=== PATIENT | female | born 1980 | race American Indian/Alaskan Native ===

== ENCOUNTER 2018-09-25 16:13 | Inpatient (IN) | payer MEDICAID ==
[2018-09-25 16:30] VITALS: BMI 34.0
--- NOTE | 2018-09-25 16:48 | C.PDOC ---
Addendum entered and electronically signed by Eduardo Moe MD 09/25/18 19:55: Disposition/Present on Arrival - Present on Arrival Any Indicators Present on Arrival: No - Disposition Have Diagnosis and Disposition been Completed?: Yes Diagnosis: Schizoaffective disorder, Depressed Disposition: HOSPITALIZED Disposition Time: 19:15 Patient Plan: Admission Patient Problems: Current Active Problems Problem Status Onset Schizophrenia Acute Suicidal ideations Acute Condition: STABLE Original Note: History Of Present Illness 38 y/o female, with PMHx of bipolar disorder, schizophrenia, and depression, presents to ED for evaluation of suicidal ideation. Notes she has tried to kill herself in the past by cutting her wrist and "choking herself", and states she has the same plan this time as well. Pt admits to using cocaine. Notes she has not taken her psych meds for the past month. Pt states she has been admitted multiple times in the past at different institutions for similar complaints. Otherwise, denies chest pain, palpitations, shortness of breath, n/v/d, abdominal pain, back pain, fever, chills, or any active physical complaints at this time. Time Seen by Provider: 09/25/18 16:17 Chief Complaint (Nursing): Psychiatric Evaluation History Per: Patient History/Exam Limitations: no limitations Onset/Duration Of Symptoms: Gradual Current Symptoms Are (Timing): Still Present Suicide/Self Injury Attempted (Context): Cut Wrists Modifying Factor(s): Cocaine Severity: None Pain Scale Rating Of: 0 Associated Symptoms: Suicidal Thoughts, Suicidal Plan Involuntary Hold By: None Recent travel outside of the [place]: No Additional History Per: Patient Past Medical History Reviewed: Historical Data, Nursing Documentation, Vital Signs - Medical History PMH: Bipolar Disorder, Schizophrenia Family History: States: Unknown Family Hx - Social History Hx Alcohol Use: No Hx Substance Use: Yes Review Of Systems Except As Marked, All Systems Reviewed And Found Negative. Constitutional: Negative for: Fever, Chills Cardiovascular: Negative for: Chest Pain, Palpitations Respiratory: Negative for: Cough, Shortness of Breath Gastrointestinal: Negative for: Nausea, Vomiting, Abdominal Pain Genitourinary: Negative for: Dysuria, Hematuria Musculoskeletal: Negative for: Back Pain Neurological: Negative for: Headache, Dizziness Psych: Positive for: Suicidal ideation Physical Exam - Physical Exam Appears: Non-toxic, No Acute Distress, Other (cooperative, smiling) Skin: Normal Color, Warm, Dry Head: Atraumatic, Normacephalic Eye(s): bilateral: Normal Inspection Oral Mucosa: Moist Neck: Normal ROM, Supple Cardiovascular: Rhythm Regular, No Murmur Respiratory: Normal Breath Sounds, No Rales, No Rhonchi, No Wheezing Gastrointestinal/Abdominal: Soft, No Tenderness Extremity: Bilateral: Atraumatic, Normal ROM Neurological/Psych: Oriented x3, Normal Speech ED Course And Treatment - Laboratory Results Result Diagrams: 09/25/18 17:23 09/25/18 17:23 Medical Decision Making Medical Decision Making: Plan: * Blood work * Urinalysis * 1:1 observation * Crisis evaluation Disposition - Disposition Disposition Time: 18:48 Condition: STABLE Forms: [employer] (Latvian) - Clinical Impression Clinical Impression: Schizophrenia, Suicidal ideations - Scribe Statement The provider has reviewed the documentation as recorded by the Scribe KP All medical record entries made by the Scribe were at my direction and personally dictated by me. I have reviewed the chart and agree that the record accurately reflects my personal performance of the history, physical exam, medic al decision making, and the department course for this patient. I have also personally directed, reviewed, and agree with the discharge instructions and disposition. Physician Patient Turnover Patient Signed Over To: Eduardo Moe Handoff Comments: Patient c/o feeling suicidal, pending crisis eval. Medically cleared.
[2018-09-25 17:32] LABS: BASO # 0.1 K/uL (0.0-0.2); BASO % 0.7 % (0.0-2.0); EOS # 0.1 K/uL (0.0-0.7); EOS % 1.7 % (0.0-4.0); HEMOGLOBIN 13.1 g/dL (11.0-16.0); LYMPH # 2.7 K/uL (1.0-4.3); LYMPH % 36.5 % (20.0-40.0); MEAN CELL VOLUME 92.3 fL (81.0-99.0); MEAN CORPUSCULAR HEMOGLOBIN 31.4 pg (27.0-31.0); MEAN PLATELET VOLUME 7.3 fL (7.2-11.7); MONO # 0.6 K/uL (0.0-0.8); MONO % 7.9 % (0.0-10.0); NEUT # 3.9 K/uL (1.8-7.0); NEUT % 53.2 % (50.0-75.0); RBC 4.16 Mil/uL (3.80-5.20); RED CELL DISTRIBUTION WIDTH 14.2 % (11.5-14.5); WHITE BLOOD COUNT 7.4 K/uL (4.8-10.8)
[2018-09-25 17:41] LABS: SQUAMOUS EPITHIAL 11 /hpf (0-5); URINE BACTERIA FEW (<OCC); URINE BILIRUBIN NEGATIVE (NEGATIVE); URINE BLOOD 2+ (NEGATIVE); URINE CLARITY Hazy (Clear); URINE COLOR Yellow (YELLOW); URINE GLUCOSE (UA) NORMAL (Normal); URINE LEUKOCYTE ESTERASE TRACE Leu/uL (Negative); URINE PROTEIN NEGATIVE (NEGATIVE)
[2018-09-25 17:51] LABS: ALB/GLOB RATIO 1.3 (1.0-2.1); ALBUMIN 4.3 g/dL (3.5-5.0); ALT/SGPT 18 U/L (9-52); AST/SGOT 30 U/L (14-36); BARBITURATES, UR NEGATIVE (NEGATIVE); BENZODIAZEPINES, UR NEGATIVE (NEGATIVE); BLOOD UREA NITROGEN 17 mg/dL (7-17); CALCIUM 9.4 mg/dl (8.6-10.4); GFR NON-AFRICAN AMERICAN > 60; OPIATES, UR NEGATIVE (NEGATIVE); PHENCYCLIDINE, UR NEGATIVE (NEGATIVE)
[2018-09-25] MEDS ORDERED: guaiFENesin 200 mg/10 ml Syrup UD PO PRN (20:07)
[2018-09-25] MEDS ORDERED: Benzocaine/Menthol (Cepacol) Lozenge MT PRN (20:07)
[2018-09-25] MEDS ORDERED: guaiFENesin DM 200 mg-20 mg/10 ml UD PO PRN (21:14)
--- NOTE | 2018-09-26 14:05 | PCM.PSYCH ---
Initial Psychiatric Evaluation - Initial Psychiatric Evaluation Type of Admission: Voluntary Legal Status: Capacity Chief Complaint (in patient's own words): "I was hearing voices" History of Present Illness and Precipitating Events: The patient is seen, chart reviewed and case discussed. This is a 38-year-old -Hung[place] male, single with no child, unemployed but on SSI for bipolar disorder. The patient lives with his mother in [place]. He reports depressive symptoms and suicidal ideation. He did not attempt anything but he said he was very depressed and felt like killing himself. He was also hearing voices telling him to "scratch yourself" He denies homicidal ideation, visual hallucinations but feels a little paranoid and irritable. He was seeing a Dr. Jones (?), and was taking Depakote but he stopped. He also uses cocaine by smoking since his 20s and 8 cigarettes a day. He denies alcohol and other drugs. He was in rehabilitation twice. Past psych history: Hospitalized 3 times in the past but no attempts. Medical history: Denies Family psych history: Denies Current Medications: Active Medications Generic Name Dose Route Start Last Admin Trade Name Freq PRN Reason Stop Dose Admin Aripiprazole 5 mg 09/26/18 22:00 Abilify PO HS ADAM Benzocaine/Menthol 1 hilary 09/25/18 20:07 Cepacol Sore Throat MT Q4 PRN Sore Throat Divalproex Sodium 500 mg 09/26/18 18:[address] PO BID ADAM Guaifenesin/Dextromethorphan 10 ml 09/25/18 21:14 09/25/18 21:26 Robitussin Dm PO 10 ml Q4H PRN Administration Cough and congestion Hydroxyzine HCl 50 mg 09/25/18 22:17 Atarax PO Q6H PRN Anxiety Ibuprofen 600 mg 09/25/18 20:07 09/25/18 21:26 Motrin Tab PO 600 mg Q6 PRN Administration Pain, moderate (4-7) Mirtazapine 15 mg 09/26/18 22:00 Remeron PO HS ADAM Pneumococcal Polyvalent Vaccine 0.5 ml 09/27/18 10:00 Pneumovax 23 Vaccine IM 09/27/18 10:01 .ONCE ONE Trazodone HCl 100 mg 09/26/18 12:02 Desyrel PO HS PRN Insomnia Past Psychiatric History - Past Psychiatric History Previous Treatment History: Inpatient Pertinent Medical Hx (Current Medical&Sleep Prob, Allergies): Allergies Allergy/AdvReac Type Severity Reaction Status Date / Time No Known Allergies Allergy Verified 09/25/18 16:28 Divalproex [Depakote ER] 500 mg PO DAILY 09/25/18 Review of Systems - Psychiatric Psychiatric: Abnormal Sleep Pattern, Anhedonia, Anxiety, Depression, Difficulty Concentrating, Hallucinations, Irritability, Suicidal Ideation (less now, contracts for safety). absent: Homicidal Ideation Mental Status Examination - Personal Presentation Personal Presentation: Looks stated age - Affect Affect: Blunted - Reliability in Providing Information Reliability in Providing Information: Good - Speech Speech: Organized - Mood Mood: Depressed, Anxious - Formal Thought Process Formal Thought Process: No Impairment - Cognitive Functions Orientation: Person, Place, Situation, Time Sensorium: Alert Attention/Concentration: Easily distracted Abstract Thinking: Hendricks Estimate of Intelligence: Below average Judgement: Intact, as evidence by: Insight regarding need for hospitalization Memory: Recent intact, as evidence by: Ability to recall events of the day, Remote intact, as evidenced by: Abilit to recall sig. life events - Risk Risk: Withdrawal, Diminished functioning - Strength & Assets Inventory Strength & Assets Inventory: Cooperative - Limitations Limitations: Living alone DSM 5 DX - DSM 5 DSM 5 Diagnosis: Schizoaffective d/o - depressed Cocaine use d/o - Recommended/Plan of Treatment Treatment Recommendations and Plan of Treatment: Start Abilify, depakote and remron Prn medications All risks, benefits and alternatives of medications, including no medications, discussed and the patient understood and agreed. Attend groups and activities Individual therapy Psychoeducation and support Encourage compliance with meds and after care Refer to outpatient program Teach healthy lifestyle methods, i.e. diet, exercise, meditation Smoking cessation 32 min Projected ELOS: 5 days Prognosis: good w treatment - Smoking Cessation Smoking Cessation Initiated: Yes
[2018-09-26] MEDS: Divalproex 500 mg DR Tab PO SCH (18:01)
[2018-09-27 07:03] VITALS: RESP 20
[2018-09-27] MEDS ORDERED: Pneumococcal 23-Valent Vaccine IM ONE (10:00)
[2018-09-27] MEDS: Divalproex 500 mg DR Tab PO SCH ×2 (10:06→18:58)
--- NOTE | 2018-09-27 20:51 | PCM.PYCHPN ---
Psychiatric Progress Note - Psychiatric Progress Note Patient seen today, length of contact: 18 min Patient Chief Complaint: "I am not well yet' Medication Change: Yes Medical Record Reviewed: Yes Mental Status Examination - Cognitive Function Orientation: Person, Place, Situation, Time Memory: Impaired Attention: Poor Concentration: Poor Association: Loose Fund of Knowledge: Poor - Mood Mood: Depressed, Anxious - Affect Affect: Blunted - Speech Speech: Appropriate - Formal Thought Process Formal Thought Process: No Impairment - Suicidal Ideation Suicidal Ideation: No - Homicidal Ideation Homicidal Ideation: No Goal/Treatment Plan - Goal/Treatment Plan Need for Continued Stay: Discharge may exacerbated symptoms, Severe functional impairment Progress Toward Problem(s) and Goals/Treatment Plan: Abilify, depakote and remron Prn medications All risks, benefits and alternatives of medications, including no medications, discussed and the patient understood and agreed. Attend groups and activities Individual therapy Psychoeducation and support Encourage compliance with meds and after care Refer to outpatient program Teach healthy lifestyle methods, i.e. diet, exercise, meditation Smoking cessation
[2018-09-28] MEDS: Divalproex 500 mg DR Tab PO SCH ×2 (09:44→17:19)
--- NOTE | 2018-09-28 10:22 | PCM.PYCHPN ---
Psychiatric Progress Note - Psychiatric Progress Note Patient seen today, length of contact: 15 min Patient Chief Complaint: I am feeling little better Problems Identified/Issues Discussed: Patient seen and evaluated, chart reviewed and discussed with the nurse. She reports some improvement in her irritability and agitation. She reports some improvement in her depressed mood and anxiety. She reports some improvement in the auditory hallucinations and paranoia. Patient is compliant with medications and denies any side effects. Symptoms are improving but need more time to stabilize. Support and psychoeducation given. Medication Change: Yes Medical Record Reviewed: Yes Mental Status Examination - Cognitive Function Orientation: Person, Place, Situation, Time Memory: Intact Attention: WNL Concentration: Poor Association: WNL Fund of Knowledge: Poor - Mood Mood: Depressed, Anxious - Affect Affect: Constricted - Speech Speech: Soft - Formal Thought Process Formal Thought Process: Paranoia - Suicidal Ideation Suicidal Ideation: No - Homicidal Ideation Homicidal Ideation: No Goal/Treatment Plan - Goal/Treatment Plan Need for Continued Stay: Severe depression anxiety, Severe functional impairment Progress Toward Problem(s) and Goals/Treatment Plan: Start Abilify, depakote and remron Prn medications All risks, benefits and alternatives of medications, including no medications, discussed and the patient understood and agreed. Attend groups and activities Individual therapy Psychoeducation and support Encourage compliance with meds and after care Refer to outpatient program Teach healthy lifestyle methods, i.e. diet, exercise, meditation Smoking cessation
--- NOTE | 2018-09-28 16:29 | PCM.BM ---
<Tru White - Last Filed: 09/28/18 16:26> Treatment Plan Problems - Problems identified on initial assessmt Schizoaffective Date Initiated: 09/28/18 Time Initiated: 16:26 Assessment reference: NA Status: Active Depression Date Initiated: 09/28/18 Time Initiated: 16:27 Assessment reference: NA Status: Active Treatment assets and liabiliti Patient Assests: self-reliant, ADL independent, physically healthy, negotiates basic needs, cognitively intact Patient Liabilities: live alone (Homeless), financial problems (Unemployed), substance abuse (Cocaine) - Milieu Protocol Maintain good personal hygiene: daily Encourage regular showers, daily Remind patient to perform daily oral care, every shift Assist patient to perform ADL's Conduct patient checks and document Observation sheet: Q15 minutes (For safety) Maintain personal safety: every shift Educate patient to report safety concerns to staff, every shift Monitor environment for contraband/sharps Medication safety: Monitor for expected outcome, potential side effects: every shift, Assess barriers to learning: every shift, Assess readiness for medication education: every shift Milieu Narrative: Start Abilify, depakote and remron Prn medications All risks, benefits and alternatives of medications, including no medications, discussed and the patient understood and agreed. Attend groups and activities Individual therapy Psychoeducation and support Encourage compliance with meds and after care Refer to outpatient program Teach healthy lifestyle methods, i.e. diet, exercise, meditation Smoking cessation Discharge/Continuing Care - Treatment Team Participation Patient/Family/SO Statement: Start Abilify, depakote and remron Prn medications All risks, benefits and alternatives of medications, including no medications, discussed and the patient understood and agreed. Attend groups and activities Individual therapy Psychoeducation and support Encourage compliance with meds and after care Refer to outpatient program Teach healthy lifestyle methods, i.e. diet, exercise, meditation Smoking cessation <Drea Zelaya - Last Filed: 09/29/18 10:43> Family Contact Family involvement: Patient does not wish Family/SO involvement Family contact: Patient declines to allow family contact at present - Goals for Treatment Patient goals for treatment: "I want to go to an outpatient program." Discharge/Continuing Care - Education Needs Education Needs: Patient Medication, Patient Diagnosis/Disease Process, Patient Coping Skills, Patient Placement options, Patient Community resources - Discharge Discharge Criteria: Free of Suicidal thoughts, Free of paranoid thoughts, Normal sleep pattern, Ability to care for self, Reduction of target symptoms Discharge to:: Home - Treatment Team Participation Discussed with Family/SO: No Was Patient/Family/SO present at Treatment Team Meeting: Yes <Eileen Cruz - Last Filed: 09/30/18 10:32> - Diagnosis (1) Schizoaffective disorder Status: Acute Interventions: * Assess/adjust medications daily and /or as needed * See patient on an individual basis 7x/week to assess level of manic behaviors and stability * Discuss risks, benefits, side effects and alternatives of medications *
[2018-09-29] MEDS: Divalproex 500 mg DR Tab PO SCH ×2 (09:48→18:29)
[2018-09-30 06:48] VITALS: BP 126/84; PULSE 81; TEMP 98.6; O2SAT 98
[2018-09-30] MEDS: Divalproex 500 mg DR Tab PO SCH (10:17)
--- NOTE | 2018-09-30 10:26 | PCM.PYCHPN ---
Psychiatric Progress Note - Psychiatric Progress Note Patient seen today, length of contact: 18 min Patient Chief Complaint: I am feeling little better.' Problems Identified/Issues Discussed: Patient seen and evaluated, chart reviewed and discussed with the nurse. She reports some improvement in her irritability and agitation. She reports some improvement in her depressed mood and anxiety. She reports some improvement in the withdrawal symptoms. She reports some improvement in the auditory hallucinations and paranoia. Patient is compliant with medications and denies any side effects. Symptoms are improving but need more time to stabilize. Support and psychoeducation given. Medication Change: Yes Medical Record Reviewed: Yes Mental Status Examination - Cognitive Function Orientation: Person, Place, Situation, Time Memory: Impaired Attention: Poor Concentration: Poor Association: Loose Fund of Knowledge: Poor - Mood Mood: Depressed, Anxious - Affect Affect: Blunted - Speech Speech: Appropriate - Formal Thought Process Formal Thought Process: No Impairment - Suicidal Ideation Suicidal Ideation: No - Homicidal Ideation Homicidal Ideation: No Goal/Treatment Plan - Goal/Treatment Plan Need for Continued Stay: Discharge may exacerbated symptoms, Severe functional impairment Progress Toward Problem(s) and Goals/Treatment Plan: Start Abilify, depakote and remron Prn medications All risks, benefits and alternatives of medications, including no medications, discussed and the patient understood and agreed. Attend groups and activities Individual therapy Psychoeducation and support Encourage compliance with meds and after care Refer to outpatient program Teach healthy lifestyle methods, i.e. diet, exercise, meditation Smoking cessation
--- NOTE | 2018-09-30 10:30 | PCM.PYCHDC ---
Mental Status Examination - Mental Status Examination Orientation: Person, Place, Situation, Time Memory: Intact Mood: Neutral Affect: Constricted Speech: Soft Attention: WNL Concentration: WNL Association: WNL Fund of Knowledge: WNL Formal Thought Process: No Impairment Description of patient's judgement and insight: good, fair Psychotic Thoughts and Behaviors: denies any AVH Suicidal Ideation: No Current Homicidal Ideation?: No Discharge Summary - Discharge Note Reason for Hospitalization: The patient is seen, chart reviewed and case discussed. This is a 38-year-old -[place] male, single with no child, unemployed but on SSI for bipolar disorder. The patient lives with his mother in [place]. He reports depressive symptoms and suicidal ideation. He did not attempt anything but he said he was very depressed and felt like killing himself. He was also hearing voices telling him to "scratch yourself" He denies homicidal ideation, visual hallucinations but feels a little paranoid and irritable. He was seeing a Dr. Jones (?), and was taking Depakote but he stopped. He also uses cocaine by smoking since his 20s and 8 cigarettes a day. He denies alcohol and other drugs. He was in rehabilitation twice. Past psych history: Hospitalized 3 times in the past but no attempts. Medical history: Denies Consultations:: List each consultation separately and include: 1. Reason for request. 2. Findings. 3. Follow-up Summary of Hospital Course include:: 1. Description of specific treatment plan utilized for patients during their course of treatmen. 2. Summarize the time- course for resolution of acute symptoms and/or regressed behaviors. 3. Describe issues identified and worked on during hospitalization. 4. Describe medication utilized. 5. Describe medical problems identified and treated. 6. Reassessment of suicide risk Summary of Hospital Course: During the course of her stay, patient (pt) started progressively improving and no longer remained irritable, paranoid, delusional, depressed, and suicidal. Her mood and anxiety were improved and she started attending groups and meetings and started socializing. Patient denied any feelings of hopelessness, helplessness, and worthlessness, denied any problem with the sleep or appetite, denied suicidal ideation or homicidal ideation. Pt denied any auditory or visual hallucinations. She denied any withdrawal symptoms. Pt was treated with medications along with supportive therapy, milieu therapy and group therapy. Some changes were made in her current medications and patient was discharged on following medications. She tolerated these medications very well and denied any side effects. - Final Diagnosis (DSM 5) Condition upon Discharge: STABLE DSM 5: Schizoaffective d/o - depressed Cocaine use d/o Disposition: HOME/ ROUTINE Follow-up Treatment Plan: Followup: She was discharged to the [facility]. Education: Pt was educated and counseled about the risks and benefits of taking and not taking medications. Pt was educated and counseled about the risks of drinking and abusing drugs. Pt was educated and counseled to go to the ER or call 911 if pt develop suicidal ideation or homicidal ideation, worsening of symptoms or severe side effects of the meds. Prescriptions/Medication Reconciliation: ARIPiprazole [Abilify] 5 mg PO HS #30 tab Divalproex [Depakote DR] 500 mg PO BID #60 tcp Mirtazapine [Remeron] 15 mg PO HS #30 tab traZODone [Desyrel] 100 mg PO HS PRN #30 tab PRN Reason: Insomnia - Smoking Cessation Smoking Cessation Medication prescribed: No - Antipsychotic Medications Pt discharged on 2 or more routine antipsychotic medications: No
== END 2018-09-30 11:32 | disposition home or self-care (01) | DRG 750 ==
LOC: C.ER 16:13 → C.5E 19:15
PROVIDERS: ADMIT Psychiatry & Neurology Psychiatry; ATTEND Psychiatry & Neurology Psychiatry
PROC: GZHZZZZ Group Psychotherapy (ICD-10-PCS; principal; 2018-09-25)
PROC: GZ58ZZZ Individual Psychotherapy, Cognitive-Behavioral (ICD-10-PCS; 2018-09-25)
PROC: GZ56ZZZ Individual Psychotherapy, Supportive (ICD-10-PCS; 2018-09-25)
DX: F25.1 Schizoaffective disorder, depressive type (principal); R45.851 Suicidal ideations; F14.90 Cocaine use, unspecified, uncomplicated; F31.9 Bipolar disorder, unspecified; Z91.5 Personal history of self-harm; F17.210 Nicotine dependence, cigarettes, uncomplicated

== ENCOUNTER 2018-10-09 10:22 | Inpatient (IN) | payer MEDICAID ==
[2018-10-09 10:22] VITALS: BMI 34.0
--- NOTE | 2018-10-09 11:24 | C.PDOC ---
History Of Present Illness 38-year-old female, PMHx includes schizophrenia, is brought to the emergency department; mother reportedly called because pt made homicidal threats towards her. Patient is currently menstruating. Denies fever, chills, chest pain, ab dominal pain, SI, AH or any other associated symptoms. Patient denies HI at this time. pt non compliant recently with medications. Time Seen by Provider: 10/09/18 10:51 Chief Complaint (Nursing): Psychiatric Evaluation History Per: Patient History/Exam Limitations: no limitations Past Medical History Reviewed: Historical Data, Nursing Documentation, Vital Signs Vital Signs: Last Vital Signs Temp 98.3 F 10/09/18 10:33 Pulse 79 10/09/18 10:33 Resp 20 10/09/18 10:33 BP 104/68 10/09/18 10:33 Pulse Ox 100 10/09/18 10:33 - Medical History PMH: Bipolar Disorder, Schizophrenia - [facility] Procedures GROUP PSYCHOTHERAPY (09/25/18) INDIVIDUAL PSYCHOTHERAPY, COGNITIVE-BEHAVIORAL (09/25/18) INDIVIDUAL PSYCHOTHERAPY, SUPPORTIVE (09/25/18) Family History: States: No Known Family Hx - Social History Hx Alcohol Use: No Hx Substance Use: Yes - Immunization History Hx Tetanus Toxoid Vaccination: Yes Hx Influenza Vaccination: No Hx Pneumococcal Vaccination: No Review Of Systems Constitutional: Negative for: Fever Gastrointestinal: Negative for: Nausea, Vomiting Neurological: Negative for: Weakness, Numbness Psych: Positive for: Other (HI - none at this time). Negative for: Suicidal ideation Physical Exam - Physical Exam Appears: Non-toxic, No Acute Distress Skin: Warm, Dry, No Rash Head: Atraumatic, Normacephalic Eye(s): bilateral: Normal Inspection Nose: Normal Oral Mucosa: Moist Lips: Normal Appearing Neck: Normal ROM Cardiovascular: Rhythm Regular, No Murmur Respiratory: Normal Breath Sounds, No Accessory Muscle Use Gastrointestinal/Abdominal: Bowel Sounds, Soft, No Tenderness Neurological/Psych: Oriented x3, Normal Speech ED Course And Treatment - Laboratory Results Result Diagrams: 10/09/18 12:03 10/09/18 12:03 O2 Sat by Pulse Oximetry: 100 Pulse Ox Interpretation: Normal (RA) Medical Decision Making Medical Decision Making: Patient pending psych clearance. Requesting 1:1 observation 1256 pt is medically cleared for psychiatric eval. accepted by Dr Cruz for psych admission Disposition Discussed With DrBridgette: Eileen Cruz Doctor Will See Patient In The: Hospital - Disposition Disposition: HOSPITALIZED Disposition Time: 13:14 Condition: STABLE - Clinical Impression Clinical Impression: Schizoaffective disorder, bipolar type - Scribe Statement The provider has reviewed the documentation as recorded by the Scribe (Trish Alcala) All medical record entries made by the Scribe were at my direction and personally dictated by me. I have reviewed the chart and agree that the record accurately reflects my personal performance of the history, physical exam, medical decision making, and the department course for this patient. I have also personally directed, reviewed, and agree with the discharge instructions and disposition.
[2018-10-09 12:07] LABS: BASO # 0.1 K/uL (0.0-0.2); BASO % 1.4 % (0.0-2.0); EOS # 0.1 K/uL (0.0-0.7); EOS % 1.7 % (0.0-4.0); HEMOGLOBIN 12.8 g/dL (11.0-16.0); LYMPH # 2.4 K/uL (1.0-4.3); LYMPH % 40.9 % (20.0-40.0); MEAN CORPUSCULAR HEMOGLOBIN 32.2 pg (27.0-31.0); MEAN CORPUSCULAR HGB CONC 34.6 g/dL (33.0-37.0); MEAN PLATELET VOLUME 8.1 fL (7.2-11.7); MONO # 0.6 K/uL (0.0-0.8); MONO % 9.8 % (0.0-10.0); NEUT # 2.7 K/uL (1.8-7.0); NEUT % 46.2 % (50.0-75.0); NRBC % 0.2 % (0.0-2.0); RBC 3.99 Mil/uL (3.80-5.20); RED CELL DISTRIBUTION WIDTH 13.8 % (11.5-14.5); WHITE BLOOD COUNT 5.8 K/uL (4.8-10.8)
[2018-10-09 12:12] LABS: HCG,QUALITATIVE URINE NEGATIVE (NEGATIVE)
[2018-10-09 12:19] LABS: SQUAMOUS EPITHIAL 1 /hpf (0-5); URINE BACTERIA RARE (<OCC); URINE BILIRUBIN NEGATIVE (NEGATIVE); URINE BLOOD 3+ (NEGATIVE); URINE CLARITY Clear (Clear); URINE COLOR Yellow (YELLOW); URINE GLUCOSE (UA) NORMAL (Normal); URINE LEUKOCYTE ESTERASE NEG Leu/uL (Negative); URINE PROTEIN NEGATIVE (NEGATIVE)
[2018-10-09 12:21] LABS: ALB/GLOB RATIO 1.3 (1.0-2.1); ALT/SGPT 23 U/L (9-52); AST/SGOT 23 U/L (14-36); BLOOD UREA NITROGEN 17 mg/dL (7-17); CALCIUM 8.6 mg/dl (8.6-10.4); GFR NON-AFRICAN AMERICAN > 60
[2018-10-09 12:46] LABS: BARBITURATES, UR NEGATIVE (NEGATIVE); BENZODIAZEPINES, UR NEGATIVE (NEGATIVE); OPIATES, UR NEGATIVE (NEGATIVE); PHENCYCLIDINE, UR NEGATIVE (NEGATIVE)
--- NOTE | 2018-10-09 15:05 | PCM.BM ---
<Viviana Ellis - Last Filed: 10/09/18 15:03> Treatment Plan Problems - Problems identified on initial assessmt Depression Date Initiated: 10/09/18 Time Initiated: 15:04 Assessment reference: NA Status: Active Substance Abuse Date Initiated: 10/09/18 Time Initiated: 15:04 Assessment reference: NA Status: Active Treatment assets and liabiliti Patient Assests: cooperative, self-reliant, ADL independent, physically healthy, negotiates basic needs, cognitively intact Patient Liabilities: financial problems, substance abuse (Cocaine) - Milieu Protocol Maintain good personal hygiene: daily Encourage regular showers, daily Remind patient to perform daily oral care, daily Assist patient to perform ADL's (Self), other Assist patient to perform ADL's Conduct patient checks and document Observation sheet: Q15 minutes (Safety) Maintain personal safety: every shift Educate patient to report safety concerns to staff, every shift Monitor environment for contraband/sharps Medication safety: Monitor for expected outcome, potential side effects: every shift, Assess barriers to learning: every shift, Assess readiness for medication education: every shift <Eileen Cruz - Last Filed: 10/12/18 11:15> - Diagnosis (1) Schizoaffective disorder, bipolar type Status: Acute Interventions: 10/12/18 11:16 * Assess/adjust medications daily and /or as needed * See patient on an individual basis 7x/week to assess status of hallucinations * Discuss risks, benefits, side effects and alternatives of medications * <Drea Zelaya - Last Filed: 10/12/18 12:19> Family Contact Family involvement: Patient does not wish Family/SO involvement Family contact: Patient declines to allow family contact at present - Goals for Treatment Patient goals for treatment: "I want to go to [facility]." Discharge/Continuing Care - Education Needs Education Needs: Patient Medication, Patient Diagnosis/Disease Process, Patient Coping Skills, Patient Placement options, Patient Community resources - Discharge Discharge Criteria: Free of Suicidal thoughts, Free of Homicidal thoughts, Normal sleep pattern, Ability to care for self, No longer exhibiting s/s of withdrawal, Reduction of target symptoms Discharge to:: [facility] - Treatment Team Participation Discussed with Family/SO: No Was Patient/Family/SO present at Treatment Team Meeting: Yes
[2018-10-10] MEDS: Divalproex 500 mg DR Tab PO SCH (17:14)
[2018-10-11 07:19] VITALS: O2SAT 96
[2018-10-11] MEDS ORDERED: Influenza Vaccine 60 MCG/0.5 ML SYR (3 yr & up) IM ONE (10:00)
[2018-10-11] MEDS ORDERED: Pneumococcal 23-Valent Vaccine IM ONE (10:00)
[2018-10-11] MEDS: Divalproex 500 mg DR Tab PO SCH ×2 (10:00→17:41)
[2018-10-12] MEDS: Divalproex 500 mg DR Tab PO SCH ×2 (09:40→17:07)
--- NOTE | 2018-10-12 11:15 | PCM.PYCHPN ---
Psychiatric Progress Note - Psychiatric Progress Note Patient seen today, length of contact: 15 min Patient Chief Complaint: I was feeling depressed.' Problems Identified/Issues Discussed: Patient seen and evaluated, chart reviewed and discussed with the nurse. Pt reports depressed mood, and reports some improvement in the feelings of hopelessness and helplessness. Pt remained disorganized and internally preoccupied. She remained isolated and withdrawn, and confined to her room. She reports some improvement in the auditory hallucinations, and paranoia. Patient is compliant with medications and denies any side effects. Symptoms are improving but pt needs more time to stabilize. Support and psychoeducation given Medication Change: Yes Medical Record Reviewed: Yes Mental Status Examination - Cognitive Function Orientation: Person, Place, Situation, Time Memory: Intact Attention: WNL Concentration: Poor Association: Loose Fund of Knowledge: WNL - Mood Mood: Depressed, Anxious - Affect Affect: Constricted - Speech Speech: Soft - Formal Thought Process Formal Thought Process: Hallucinations, Delusions, Paranoia, Loosening of associations - Suicidal Ideation Suicidal Ideation: No - Homicidal Ideation Homicidal Ideation: No Goal/Treatment Plan - Goal/Treatment Plan Need for Continued Stay: Severe depression anxiety, Severe functional impairment Progress Toward Problem(s) and Goals/Treatment Plan: Schizoaffective disorder bipolar type CBT Psychoeducation Supportive therapy, group therapy, individual therapy Haldol 5 mg by mouth q6 prn Trazodone 100 mg by mouth daily at bedtime Hydroxyzine 25 mg by mouth every 6 hours when necessary Depakote 500 mg by mouth twice a day Aripiprazole 10 mg by mouth daily at bedtime Cocaine use disorder severe Monitor signs and symptoms Use [place] for abstinence - Smoking Cessation Smoking Cessation Initiated: No
--- NOTE | 2018-10-13 07:06 | PCM.PSYCH ---
Initial Psychiatric Evaluation - Initial Psychiatric Evaluation Legal Status: Capacity Chief Complaint (in patient's own words): my medicine made me too weak and i stopped it Patient's Reaction to Hospitalization: i want to stop the risperdal and get a new medicine History of Present Illness and Precipitating Events: pt is a 38n year old female who lives with her mother mother called 911 because she was afraid of herc daughter because PT WAS HAVING HOMICIDAL IDEATION YOWARDS HER MOTHER. PT HAD STOPPED TAKING HER MEDICATIONS.FOR SEVERAL DAYS THEB PT ADMITS. PTB HAS HAD MULTIPLE HOSPITALIZATIONS INCLUDING [facility] AND [facility]. PT STATES SHE WENT TO THESE HOSPITALS TO BETTER HERSELF. PT DENIES CURRENT SI/HI. PT DENIES DELUSIONS AND HALLUCINATIONS AT THIS TIME. HOWEVER HER MOTHER CAN IRRITATE HER. 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 DUE TO PSYCHIATIC ILLNESS PT HAS 3 BROTHER AND 1 SISTERSHE IS THIRD IN A SIBSHIP OF FIVE Current Medications: Active Medications Generic Name Dose Route Start Last Admin Trade Name Freq PRN Reason Stop Dose Admin Aripiprazole 10 mg 10/11/18 10:00 10/12/18 09:40 Abilify PO 10 mg DAILY ADAM Administration Divalproex Sodium 500 mg 10/10/18 18:00 10/12/18 17:[address] PO 500 mg BID ADAM Administration Past Psychiatric History - Past Psychiatric History Prior Professional Help: SEE HPI Pertinent Medical Hx (Current Medical&Sleep Prob, Allergies): Allergies Allergy/AdvReac Type Severity Reaction Status Date / Time No Known Allergies Allergy Verified 10/09/18 11:14 Divalproex [Depakote ER] 500 mg PO DAILY 09/25/18 ARIPiprazole [Abilify] 5 mg PO HS #30 tab 09/30/18 Mirtazapine [Remeron] 15 mg PO HS #30 tab 09/30/18 traZODone [Desyrel] 100 mg PO HS PRN #30 tab 09/30/18 Review of Systems - Review of Systems Systems not reviewed;Unavailable: Altered Mental Status - EENT Eyes: UNREMARKABLE Ears: UNREMARKABLE - Breasts Breasts: UNREMARKABLE - Cardiovascular Cardiovascular: UNREMARKABLE - Respiratory Respiratory: UNREMARKABLE - Gastrointestinal Gastrointestinal: UNREMARKABLE - Genitourinary Genitourinary: UNREMARKABLE - Reproductive: Female Reproductive:Female: Currently Menstual - Menstruation Menstruation: UNREMARKABLE - Musculoskeletal Musculoskeletal: UNREMARKABLE - Integumentary Integumentary: UNREMARKABLE - Neurological Neurological: UNREMARKABLE - Psychiatric Psychiatric: Homicidal Ideation - Endocrine Endocrine: UNREMARKABLE - Hematologic/Lymphatic Hematologic: UNREMARKABLE Mental Status Examination - Personal Presentation Personal Presentation: Looks stated age - Affect Affect: Blunted - Motor Activity Motor Activity: Calm - Reliability in Providing Information Reliability in Providing Information: Fair - Speech Speech: Coherent - Mood Mood: Neutral - Formal Thought Process Formal Thought Process: Delusions, Paranoia - Obsessions/Compulsions Obsessions: None Compulsions: None - Cognitive Functions Orientation: Person, Place, Situation, Time Sensorium: Alert, Lethargic Attention/Concentration: Easily distracted Abstract Thinking: Rindge Estimate of Intelligence: Average Judgement: Imparied, as evidence by: Lack of insight into illness Memory: Recent intact, as evidence by: Other, Remote intact, as evidenced by: Abilit to recall sig. life events - Risk Risk: Homicidal - Strength & Assets Inventory Strength & Assets Inventory: Employment history - Limitations Limitations: Other DSM 5 DX - DSM 5 DSM 5 Diagnosis: SCHIZOAFFECTIVE DISORDER COCAINE USE DISORDER - Recommended/Plan of Treatment Treatment Recommendations and Plan of Treatment: SCHIZOAFFECTIVE DISORDER BIPOLAR TYPE ABILIFY DEPAKOTE PSYCHOEDUCATION COCAINE USE DISORDER NV CBT GROUP MILIEU AND RECREATIONAL THERAPIES SUPPORTIVE PSYCHOTHERAPY Projected ELOS: 10 DAYS Prognosis: FAIR WITH TREATMENT Discharge Plan and Discharge Criteria: NO LONGER PARANOID AND NO HOMICIDAL IDEATION - Smoking Cessation Smoking Cessation Initiated: No
--- NOTE | 2018-10-13 07:27 | PCM.PYCHPN ---
Psychiatric Progress Note - Psychiatric Progress Note Patient seen today, length of contact: 15 min Patient Chief Complaint: I AM NOT TIRED ANY MORE WITH THE NEW MEDICINE Problems Identified/Issues Discussed: PT SEEN AND EXAMINED DISCUSSED WITH STAFF. DISCUSSED WITH PT SYMPTOM MANAGEMENT Medical Problems: NOTHING ACUTE Diagnostic Results: REVIEWED Medication Change: Yes Medical Record Reviewed: Yes Mental Status Examination - Cognitive Function Orientation: Person, Place, Situation, Time Memory: Impaired Attention: Poor Concentration: Poor Association: WNL Fund of Knowledge: Poor - Mood Mood: Neutral - Affect Affect: Blunted - Speech Speech: Appropriate - Formal Thought Process Formal Thought Process: Hallucinations, Delusions, Paranoia - Suicidal Ideation Suicidal Ideation: No - Homicidal Ideation Homicidal Ideation: No Goal/Treatment Plan - Goal/Treatment Plan Need for Continued Stay: Discharge may exacerbated symptoms, Severe functional impairment Progress Toward Problem(s) and Goals/Treatment Plan: SCHIZOAFFECTIVE DISORDER BIPOLAR TYPE ABILIFY DEPAKOTE PSYCHOEDUCATION COCAINE USE DISORDER IN CBT GROUP MILIEU AND RECREATIONAL THERAPIES SUPPORTIVE PSYCHOTHERAPY - Smoking Cessation Smoking Cessation Initiated: No
[2018-10-13] MEDS: Divalproex 500 mg DR Tab PO SCH ×2 (09:48→17:43)
--- NOTE | 2018-10-14 01:51 | PCM.PYCHPN ---
Psychiatric Progress Note - Psychiatric Progress Note Patient seen today, length of contact: 15 min Patient Chief Complaint: I am feeling better.' Problems Identified/Issues Discussed: Patient seen and evaluated, chart reviewed and discussed with the nurse. Pt reports some improvement in the depressed mood, and reports some improvement in the feelings of hopelessness and helplessness. She appears more organized and less internally preoccupied than before. She remained isolated and withdrawn, and confined to her room. She reports some improvement in the auditory hallucinations, and paranoia. Patient is compliant with medications and denies any side effects. Symptoms are improving but pt needs more time to stabilize. Support and psychoeducation given Medication Change: Yes Medical Record Reviewed: Yes Mental Status Examination - Cognitive Function Orientation: Person, Place, Situation, Time Memory: Intact Attention: WNL Concentration: Poor Association: Loose Fund of Knowledge: WNL - Mood Mood: Depressed, Anxious - Affect Affect: Constricted - Speech Speech: Soft - Formal Thought Process Formal Thought Process: Hallucinations, Delusions, Paranoia, Loosening of associations - Suicidal Ideation Suicidal Ideation: No - Homicidal Ideation Homicidal Ideation: No Goal/Treatment Plan - Goal/Treatment Plan Need for Continued Stay: Severe depression anxiety, Severe functional impairment Progress Toward Problem(s) and Goals/Treatment Plan: Schizoaffective disorder bipolar type CBT Psychoeducation Supportive therapy, group therapy, individual therapy Haldol 5 mg by mouth q6 prn Trazodone 100 mg by mouth daily at bedtime Hydroxyzine 25 mg by mouth every 6 hours when necessary Depakote 500 mg by mouth twice a day Aripiprazole 10 mg by mouth daily at bedtime Cocaine use disorder severe Monitor signs and symptoms Use [place] for abstinence
[2018-10-14] MEDS: Divalproex 500 mg DR Tab PO SCH ×2 (09:04→17:42)
--- NOTE | 2018-10-14 10:29 | PCM.PYCHPN ---
Psychiatric Progress Note - Psychiatric Progress Note Patient seen today, length of contact: 15 min Patient Chief Complaint: I was feeling depressed.' Problems Identified/Issues Discussed: Patient seen and evaluated, chart reviewed and discussed with the nurse. Pt reports some improvement in the depressed mood, auditory hallucinations and paranoia. She appears more organized and less internally preoccupied than before. Patient is compliant with medications and denies any side effects. Symptoms are improving but pt needs more time to stabilize. Support and psychoeducation given Medication Change: Yes Medical Record Reviewed: Yes Mental Status Examination - Cognitive Function Orientation: Person, Place, Situation, Time Memory: Intact Attention: WNL Concentration: WNL Association: Loose Fund of Knowledge: WNL - Mood Mood: Depressed, Anxious - Affect Affect: Constricted - Speech Speech: Soft - Formal Thought Process Formal Thought Process: Loosening of associations - Suicidal Ideation Suicidal Ideation: No - Homicidal Ideation Homicidal Ideation: No Goal/Treatment Plan - Goal/Treatment Plan Need for Continued Stay: Severe depression anxiety, Severe functional impairment Progress Toward Problem(s) and Goals/Treatment Plan: Schizoaffective disorder bipolar type CBT Psychoeducation Supportive therapy, group therapy, individual therapy Haldol 5 mg by mouth q6 prn Trazodone 100 mg by mouth daily at bedtime Hydroxyzine 25 mg by mouth every 6 hours when necessary Depakote 500 mg by mouth twice a day Aripiprazole 10 mg by mouth daily at bedtime Cocaine use disorder severe Monitor signs and symptoms Use [place] for abstinence
[2018-10-15 06:45] VITALS: BP 113/74; PULSE 69; RESP 18; TEMP 98.6
[2018-10-15] MEDS: Divalproex 500 mg DR Tab PO SCH (10:00)
--- NOTE | 2018-10-15 10:06 | PCM.PYCHDC ---
Mental Status Examination - Mental Status Examination Orientation: Person, Place, Situation, Time Memory: Intact Affect: Constricted Speech: Soft Attention: WNL Concentration: WNL Association: WNL Fund of Knowledge: WNL Formal Thought Process: No Impairment Description of patient's judgement and insight: good, fair Psychotic Thoughts and Behaviors: denies any AVH Suicidal Ideation: No Current Homicidal Ideation?: No Discharge Summary - Discharge Note Reason for Hospitalization: Pt is a 38n year old female who lives with her mother mother called 911 because she was afraid of herc daughter because pt was having homicidal ideation towards her mother. Pt had stopped taking her medications for several days the pt admits. Ptb has had multiple hospitalizations including [facility] and [facility]. Pt states she went to these hospitals to better herself. Pt denies current si/hi. Pt denies delusions and hallucinations at this time. However her mother can irritate her. Family psych hx none Family substance use denied denied Legal has been arrested and jailed for robbery Substance abuse hx has used cocaine in the past but uds is positive for cocaine pt started using cocaine age 28 Medical hx denied Social hx went up to 10th grade has worked in a [employer]elz story is on disability due to psychiatric illness pt has 3 brother and 1 sister she is third in a sibship of five Consultations:: List each consultation separately and include: 1. Reason for request. 2. Findings. 3. Follow-up Summary of Hospital Course include:: 1. Description of specific treatment plan utilized for patients during their course of treatmen. 2. Summarize the time- course for resolution of acute symptoms and/or regressed behaviors. 3. Describe issues identified and worked on during hospitalization. 4. Describe medication utilized. 5. Describe medical problems identified and treated. 6. Reassessment of suicide risk Summary of Hospital Course: During the course of her stay, patient (pt) started progressively improving and she no longer remained irritable, anxious and paranoid. Her mood and paranoia were improved and she started attending groups and meetings and started socializing. Patient denied any feelings of hopelessness, helplessness, and worthlessness, denied any problem with the sleep or appetite, denied suicidal ideation or homicidal ideation. Pt denied any auditory or visual hallucinations. Some changes were made in her current medications and patient was discharged on following medications. She tolerated these medications very well and denied any side effects. - Diagnosis (1) Schizoaffective disorder, bipolar type Current Visit: Yes Status: Acute - Final Diagnosis (DSM 5) Condition upon Discharge: STABLE DSM 5: Schizoaffective disorder bipolar type Cocaine use disorder severe Disposition: HOME/ ROUTINE Follow-up Treatment Plan: Follow-up: Patient was discharged to [facility] . Education: Pt was educated and counseled about the risks and benefits of taking and not taking medications. Pt was educated and counseled about the risks of drinking and abusing drugs. Pt was educated and counseled to go to the ER or call 911 if pt develop suicidal ideation or homicidal ideation, worsening of symptoms or severe side effects of the meds. Prescriptions/Medication Reconciliation: ARIPiprazole [Abilify] 10 mg PO DAILY #30 tab Divalproex [Depakote DR] 500 mg PO BID #60 tcp traZODone [Desyrel] 50 mg PO HS #30 tab - Smoking Cessation Smoking Cessation Medication prescribed: No - Antipsychotic Medications Pt discharged on 2 or more routine antipsychotic medications: No
== END 2018-10-15 11:00 | disposition home or self-care (01) | DRG 750 ==
LOC: C.ER 10:22 → C.5E 13:15
PROVIDERS: ADMIT Psychiatry & Neurology Psychiatry; ATTEND Psychiatry & Neurology Psychiatry
DX: F25.0 Schizoaffective disorder, bipolar type (principal); F14.20 Cocaine dependence, uncomplicated; R45.850 Homicidal ideations

== ENCOUNTER 2018-11-05 11:43 | Inpatient (IN) | payer MEDICAID ==
[2018-11-05 12:01] VITALS: O2SAT 98; BMI 32.7
[2018-11-05 12:34] LABS: BASO # 0.1 K/uL (0.0-0.2); BASO % 0.8 % (0.0-2.0); EOS # 0.1 K/uL (0.0-0.7); EOS % 1.4 % (0.0-4.0); HEMOGLOBIN 14.4 g/dL (11.0-16.0); LYMPH # 2.5 K/uL (1.0-4.3); LYMPH % 35.1 % (20.0-40.0); MEAN CELL VOLUME 94.6 fL (81.0-99.0); MEAN CORPUSCULAR HEMOGLOBIN 32.5 pg (27.0-31.0); MEAN CORPUSCULAR HGB CONC 34.4 g/dL (33.0-37.0); MEAN PLATELET VOLUME 7.1 fL (7.2-11.7); MONO # 0.6 K/uL (0.0-0.8); MONO % 7.8 % (0.0-10.0); NEUT # 3.9 K/uL (1.8-7.0); NEUT % 54.9 % (50.0-75.0); RBC 4.42 Mil/uL (3.80-5.20); WHITE BLOOD COUNT 7.2 K/uL (4.8-10.8)
[2018-11-05 12:38] LABS: HCG,QUALITATIVE URINE NEGATIVE (NEGATIVE); SQUAMOUS EPITHIAL 2 /hpf (0-5); URINE BACTERIA RARE (<OCC); URINE BILIRUBIN NEGATIVE (NEGATIVE); URINE BLOOD NEGATIVE (NEGATIVE); URINE CLARITY Clear (Clear); URINE COLOR Yellow (YELLOW); URINE GLUCOSE (UA) NORMAL (Normal); URINE LEUKOCYTE ESTERASE NEG Leu/uL (Negative); URINE PROTEIN NEGATIVE (NEGATIVE)
--- NOTE | 2018-11-05 12:59 | C.PDOC ---
History Of Present Illness 38 year old female with a prior history of schizophrenia and bipolar disorder presents to the ED for psychiatric evaluation. The patient reports auditory hallucination, suicidal ideations with a plan, and homicidal ideations for 6 m onths. States she is supposed to be taking Trazadone, Risperdol, and [place] but is noncompliant. No current psychiatric followup established. Admits to cocaine use yesterday, none today. Denies alcohol use. She also presents with throat pain, concern for strep throat. In the ED the patient was able to eat lunch. Denies fever, chills, nausea, vomiting, chest pain, SOB, abdominal pain, dizziness, wekaness, numbness, paresthesias, and any other associated symptoms. HPI and ROS limited secondary to patient's uncooperative nature. Chief Complaint (Nursing): Psychiatric Evaluation History Per: Patient History/Exam Limitations: no limitations Onset/Duration Of Symptoms: Other (x6 months. ) Current Symptoms Are (Timing): Still Present Suicide/Self Injury Attempted (Context): None Past Medical History Reviewed: Historical Data, Nursing Documentation, Vital Signs Vital Signs: Last Vital Signs Temp 97.9 F 11/05/18 11:48 Pulse 93 H 11/05/18 11:48 Resp 18 11/05/18 11:48 BP 135/87 11/05/18 11:48 Pulse Ox 98 11/05/18 11:48 - Medical History PMH: Bipolar Disorder, HTN, Schizophrenia Denies: Diabetes, Hepatitis, HIV, Seizures, Sexually Transmitted Disease - [facility] Procedures GROUP PSYCHOTHERAPY (09/25/18) INDIVIDUAL PSYCHOTHERAPY, COGNITIVE-BEHAVIORAL (09/25/18) INDIVIDUAL PSYCHOTHERAPY, SUPPORTIVE (09/25/18) Family History: States: Unknown Family Hx - Social History Hx Alcohol Use: No Hx Substance Use: Yes (smokes crack) - Immunization History Hx Tetanus Toxoid Vaccination: No Hx Influenza Vaccination: No Hx Pneumococcal Vaccination: No Review Of Systems Except As Marked, All Systems Reviewed And Found Negative. Constitutional: Negative for: Fever, Chills Eyes: Positive for: Redness (right eye). Negative for: Pain, Vision Change ENT: Negative for: Ear Pain, Nose Pain, Mouth Swelling, Throat Swelling Cardiovascular: Negative for: Chest Pain, Palpitations Respiratory: Negative for: Cough, Shortness of Breath Gastrointestinal: Negative for: Nausea, Vomiting Genitourinary: Negative for: Dysuria, Frequency Musculoskeletal: Negative for: Neck Pain, Back Pain Skin: Negative for: Rash Neurological: Negative for: Weakness, Numbness, Seizures, Headache, Dizziness Psych: Positive for: Anxiety, Psychosis (auditory hallucinations), Suicidal ideation, Other ((+) homicial ideations. ). Negative for: Depression, Withdrawal Physical Exam - Physical Exam Appears: Non-toxic, No Acute Distress, Unkempt, Other (Uncooperative) Skin: Normal Color, Warm, Dry Head: Atraumatic, Normacephalic Eye(s): bilateral: PERRL, EOMI, right: Other, left: Normal Inspection Ear(s): Bilateral: Normal Nose: Normal Oral Mucosa: Moist Throat: Normal, No Erythema, No Exudate Neck: Normal ROM, Trachea Midline, Supple Chest: Symmetrical, No Deformity Cardiovascular: Rhythm Regular, No Murmur Respiratory: Normal Breath Sounds, No Rales, No Rhonchi, No Wheezing Gastrointestinal/Abdominal: Normal Exam, Soft, No Tenderness Back: Normal Inspection, No CVA Tenderness, No Paraspinal Tenderness Extremity: Normal ROM Extremity: Bilateral: Atraumatic, No Pedal Edema, Normal Color And Temperature, Normal ROM Pulses: Left Radial: Normal, Right Radial: Normal Neurological/Psych: Oriented x3, Normal Speech, Normal Motor, Normal Sensation Gait: Steady ED Course And Treatment - Laboratory Results Result Diagrams: 18 12:31 1218 12:31 Urine POC: Negative O2 Sat by Pulse Oximetry: 98 (RA) Pulse Ox Interpretation: Normal Medical Decision Making Medical Decision Making: Initial plan: -Labs -UA Rapid strep POC urine preg UDS -Alcohol level Progress/Update: 13:00 Patient evaluated by PES. Soniya Recommends impatient admission under Dr. Cruz with diagnosis of Schizoaffective Disorder, Bipolar Type. Potassium 3.4, will order 20mEq potassium chloride. 14:42 Patient medically cleared for inpatient psychiatric admission. Disposition - Disposition Disposition: HOSPITALIZED Disposition Time: 14:40 Condition: STABLE - Clinical Impression Clinical Impression: Schizoaffective disorder, bipolar type - PA / REWRITE EDITOR / Resident Statement MD/DO has reviewed & agrees with the documentation as recorded. - Scribe Statement The provider has reviewed the documentation as recorded by the Scribe (Carrie Bender) All medical record entries made by the Scribe were at my direction and personally dictated by me. I have reviewed the chart and agree that the record accurately reflects my personal performance of the history, physical exam, medical decision making, and the department course for this patient. I have also personally directed, reviewed, and agree with the discharge instructions and disposition. Decision To Admit - Pt Status Changed To: Hospital Disposition Of: Inpatient - Admit Certification Admit to Inpatient:: After my assessment, the patient will require hospitalization for at least two midnights. This is because of the severity of symptoms shown, intensity of services needed, and/or the medical risk in this patient being treated as an outpatient. - InPatient: Physician Admission Certification: I certify that this patient requires 2 or more midnights of care for the following reason:: 38 y/o female with PMH of schizoaffective disorder and bipolar disorder presented for psychiatric evaluation with complaints of SI, HI, and auditory hallucinations x 6 months. Pt noncompliant with medications and has no established psychiatric followup. Medically cleared for psychiatric admission with diagnosis of schizoaffective disorder, bipolar type. - . Bed Request Type: Psychiatry Patient Diagnosis: Schizoaffective disorder, bipolar type
[2018-11-05 13:25] LABS: ALB/GLOB RATIO 1.2 (1.0-2.1); ALBUMIN 4.3 g/dL (3.5-5.0); ALT/SGPT 24 U/L (9-52); AST/SGOT 18 U/L (14-36); BLOOD UREA NITROGEN 12 mg/dL (7-17); GFR NON-AFRICAN AMERICAN > 60
[2018-11-05] MEDS ORDERED: Potassium Chloride 20 mEq ER Tab PO STA (13:48)
[2018-11-05] MEDS ORDERED: Potassium Chloride 20 mEq ER Tab PO ONE (14:04)
[2018-11-05 15:42] LABS: BARBITURATES, UR NEGATIVE (NEGATIVE); BENZODIAZEPINES, UR NEGATIVE (NEGATIVE); OPIATES, UR NEGATIVE (NEGATIVE); PHENCYCLIDINE, UR NEGATIVE (NEGATIVE)
--- NOTE | 2018-11-05 20:13 | PCM.BM ---
<Tru White - Last Filed: 11/05/18 20:11> Treatment Plan Problems - Problems identified on initial assessmt schizoaffective disorder Date Initiated: 11/05/18 Time Initiated: 20:11 Assessment reference: NA Status: Active suicidal/homicidal ideation Date Initiated: 11/05/18 Time Initiated: 20:12 Assessment reference: NA Status: Active Treatment assets and liabiliti Patient Assests: cooperative, self-reliant, ADL independent, physically healthy, negotiates basic needs, cognitively intact Patient Liabilities: live alone (Homeless), dietary restrictions (Heart healthy), substance abuse (Crack cocaine), medical problems (Hypertension), other - Milieu Protocol Maintain good personal hygiene: daily Encourage regular showers, daily Remind patient to perform daily oral care, every shift Assist patient to perform ADL's Conduct patient checks and document Observation sheet: Q15 minutes (For safety) Maintain personal safety: every shift Educate patient to report safety concerns to staff, every shift Monitor environment for contraband/sharps Medication safety: Monitor for expected outcome, potential side effects: every shift, Assess barriers to learning: every shift, Assess readiness for medication education: every shift <Drea Zelaya - Last Filed: 11/09/18 12:28> Family Contact Family involvement: Patient does not wish Family/SO involvement Family contact: Patient declines to allow family contact at present - Goals for Treatment Patient goals for treatment: "I want to go back to [facility]." Discharge/Continuing Care - Education Needs Education Needs: Patient Medication, Patient Diagnosis/Disease Process, Patient Coping Skills, Patient Placement options, Patient Community resources - Discharge Discharge Criteria: Free of Suicidal thoughts, Free of Homicidal thoughts, Free of paranoid thoughts, Free of agitation, Normal sleep pattern, Ability to care for self, No longer exhibiting s/s of withdrawal, Reduction of target symptoms Discharge to:: [facility] - Treatment Team Participation Discussed with Family/SO: No Was Patient/Family/SO present at Treatment Team Meeting: Yes
[2018-11-06] MEDS ORDERED: Divalproex 500 mg ER Tab PO SCH (10:00)
--- NOTE | 2018-11-06 10:40 | PCM.PSYCH ---
Initial Psychiatric Evaluation - Initial Psychiatric Evaluation Type of Admission: Voluntary Legal Status: Capacity Chief Complaint (in patient's own words): I showed up at my moms house because I wasnt feeling well, I ve been hearing voices and told her I might hurt someone for real, so she called the ambulance. History of Present Illness and Precipitating Events: This is a 38 y/o homeless female who came to the [facility] for auditory hallucinations and suicidal/ homicidal ideation. Rate Engineer is familiar with this patient. Patient has history of multiple inpatient psychiatric hospitalizations. She was just discharged from [facility] a few weeks ago. As per the patient she stopped taking her medications and relapsed on cocaine. As the patient, she started hearing voices telling her to harm herself and harm others. She told her mom and her mom called the police. She remained a very poor historian. She was superficially cooperative but guarded about details. Patient appears very disorganized and internally preoccupied. She reports of hearing voices command type to hurt herself and her others. She appeared very delusional and paranoid. She remained irritable and agitated. She continued to yell and curse at the staff, and remained nondirectable. She also reported paranoia that people are after her. She appears very disheveled and unkempt. As per the family she has been talking to her relatives. She reports of smoking cocaine but denies any drinking or any other drugs. Past medical history None reported Current Medications: Active Medications Generic Name Dose Route Start Last Admin Trade Name Freq PRN Reason Stop Dose Admin Divalproex Sodium 250 mg 11/06/18 10:00 11/06/18 09:45 Depakote Er PO Not Given BID ADAM Hydroxyzine HCl 50 mg 11/05/18 22:07 Atarax PO Q6 PRN Agitation Influenza Virus Vaccine 60 mcg 11/07/18 10:00 Fluzone Quad [id number] IM 11/07/18 10:01 .ONCE ONE Pneumococcal Polyvalent Vaccine 0.5 ml 11/07/18 10:00 Pneumovax 23 Vaccine IM 11/07/18 10:01 .ONCE ONE Risperidone 2 mg 11/05/18 22:15 11/05/18 22:45 Risperdal Tab PO Not Given HS ADAM Trazodone HCl 50 mg 11/05/18 22:15 11/05/18 22:45 Desyrel PO Not Given [facility] Past Psychiatric History - Past Psychiatric History Previous Treatment History: Inpatient Pertinent Medical Hx (Current Medical&Sleep Prob, Allergies): Allergies Allergy/AdvReac Type Severity Reaction Status Date / Time No Known Allergies Allergy Verified 11/05/18 11:51 Divalproex [Depakote ER] 500 mg PO HS 09/25/18 DiphenhydrAMINE [Benadryl] 50 mg PO HS 11/05/18 risperiDONE [RisperDAL] 3 mg PO HS 11/05/18 traZODone [trazODONE HYDROCHLORIDE] 50 mg PO HS 11/05/18 Review of Systems - Review of Systems All systems: reviewed and no additional remarkable complaints except - Psychiatric Psychiatric: Anxiety, Auditory Hallucinations, Irritability, Mood Swings, Paranoia, Suicidal Ideation Mental Status Examination - Personal Presentation Personal Presentation: Looks stated age - Affect Affect: Broad - Motor Activity Motor Activity: Psychomotor Agitation - Reliability in Providing Information Reliability in Providing Information: Poor, due to alteration in thoughts, Poor, due to altered mood - Speech Speech: Disorganized - Mood Mood: Anxious - Formal Thought Process Formal Thought Process: Hallucinations, Delusions, Paranoia, Loosening of a ssociations, Flight of ideas - Hallucinations/Delusions Hallucinations: Auditory Delusions: Persecution - Obsessions/Compulsions Obsessions: No Compulsions: No - Cognitive Functions Orientation: Person, Place, Situation, Time Sensorium: Alert Attention/Concentration: Attentive Abstract Thinking: [place] Estimate of Intelligence: Below average Judgement: Imparied, as evidence by: Poor judgement, Imparied, as evidence by: Lack of insight into illness - Risk Risk: Suicidal, Withdrawal, Diminished functioning - Limitations Limitations: Living alone DSM 5 DX - DSM 5 DSM 5 Diagnosis: Schizoaffective disorder bipolar type - Recommended/Plan of Treatment Treatment Recommendations and Plan of Treatment: Schizoaffective disorder bipolar type Cocaine use disorder severe CBT Psychoeducation Supportive therapy and group therapy Depakote 250 mg p.o. twice daily Risperdal 1 mg p.o. twice daily Klonopin 1 mg p.o. twice daily Hydroxyzine 25 mg p.o. every 6 hours as needed Trazodone 50 mg p.o. nightly - Smoking Cessation Smoking Cessation Initiated: No
[2018-11-07] MEDS ORDERED: Pneumococcal 23-Valent Vaccine IM ONE (10:00)
[2018-11-07] MEDS ORDERED: Influenza Vaccine 60 MCG/0.5 ML SYR (3 yr & up) IM ONE (10:00)
--- NOTE | 2018-11-07 13:09 | PCM.PYCHPN ---
Psychiatric Progress Note - Psychiatric Progress Note Patient seen today, length of contact: 15 minutes Patient Chief Complaint: I am feeling much better than before. Problems Identified/Issues Discussed: Patient seen, chart reviewed, case discussed with the staff. Issues related to illness and treatment were discussed with the patient and staff. Reported compliant with treatment with no adverse effects. Tolerating treatment very well. Patient reported feeling better. Awake, alert and oriented 3. Calm and more cooperative. Mood reported as okay. Affect inappropriate, appeared Blunted. Patient appeared disheveled. Treatment discussed with the patient. Needs more time for stabilization. Aftercare discussed with the patient. Denied any delusions, auditory or visual hallucinations, suicidal ideations or homicidal ideations at the time of evaluation. Medical Problems: None reported Diagnostic Results: Reviewed DSM 5 Symptoms Update: Some improvement with treatment Medication Change: No Medical Record Reviewed: Yes Mental Status Examination - Cognitive Function Orientation: Person, Place, Situation, Time Memory: Intact Attention: WNL Concentration: WNL Association: WNL Fund of Knowledge: WNL Decription of patient's judgement and insights: Fair - Mood Mood: Anxious - Affect Affect: Blunted - Speech Speech: Appropriate - Formal Thought Process Formal Thought Process: Loosening of associations, Flight of ideas - Suicidal Ideation Suicidal Ideation: No - Homicidal Ideation Homicidal Ideation: No Goal/Treatment Plan - Goal/Treatment Plan Need for Continued Stay: Remain at risks for inpatient hospitalization, Discharge may exacerbated symptoms, Severe functional impairment Progress Toward Problem(s) and Goals/Treatment Plan: Patient education. Supportive therapy. Continue treatment as before. Estimated Date of D/C: 11/12/18 - Smoking Cessation Smoking Cessation Initiated: No
--- NOTE | 2018-11-08 22:57 | PCM.PYCHPN ---
Psychiatric Progress Note - Psychiatric Progress Note Patient seen today, length of contact: 15 minutes Patient Chief Complaint: I am feeling much better than before. Problems Identified/Issues Discussed: Patient seen, chart reviewed, case discussed with the staff. Issues related to illness and treatment were discussed with the patient and staff. Reported compliant with treatment with no adverse effects. Tolerating treatment very well. Patient reported feeling better. Awake, alert and oriented 3. Calm and more cooperative. Mood reported as okay. Affect inappropriate, appeared Blunted. Patient appeared disheveled. Treatment discussed with the patient. Needs more time for stabilization. Aftercare discussed with the patient. Denied any delusions, auditory or visual hallucinations, suicidal ideations or homicidal ideations at the time of evaluation. Medical Problems: None reported Diagnostic Results: Reviewed Medication Change: No Medical Record Reviewed: Yes Mental Status Examination - Cognitive Function Orientation: Person, Place, Situation, Time Memory: Intact Attention: WNL Concentration: WNL Association: WNL Fund of Knowledge: WNL Decription of patient's judgement and insights: Fair - Mood Mood: Anxious - Affect Affect: Blunted - Speech Speech: Appropriate - Formal Thought Process Formal Thought Process: Loosening of associations, Flight of ideas - Suicidal Ideation Suicidal Ideation: No - Homicidal Ideation Homicidal Ideation: No Goal/Treatment Plan - Goal/Treatment Plan Need for Continued Stay: Remain at risks for inpatient hospitalization, Discharge may exacerbated symptoms, Severe functional impairment Progress Toward Problem(s) and Goals/Treatment Plan: Patient education. Supportive therapy. Continue treatment as before. Estimated Date of D/C: 11/12/18
[2018-11-09 06:18] VITALS: RESP 18
--- NOTE | 2018-11-09 13:44 | PCM.PYCHPN ---
Psychiatric Progress Note - Psychiatric Progress Note Patient seen today, length of contact: 15 minutes Patient Chief Complaint: I am feeling little better Problems Identified/Issues Discussed: Patient was seen in neurology, chart reviewed and discussed with the staff. Patient reports of some improvement in the voices and reports some improvement in her paranoia. She still reports irritability and agitation. However as per the staff she remained calm and cooperative. She is taking medication but denies any side effects. Symptoms are improving but she needs to stay longer for stabilization. Supportive therapy was given. Medication Change: No Medical Record Reviewed: Yes Mental Status Examination - Cognitive Function Orientation: Person, Place, Situation, Time Memory: Intact Attention: WNL Concentration: Poor Association: Loose Fund of Knowledge: WNL - Mood Mood: Anxious - Affect Affect: Blunted - Speech Speech: Appropriate - Formal Thought Process Formal Thought Process: Delusions, Paranoia, Loosening of associations, Flight of ideas - Suicidal Ideation Suicidal Ideation: No - Homicidal Ideation Homicidal Ideation: No Goal/Treatment Plan - Goal/Treatment Plan Need for Continued Stay: Remain at risks for inpatient hospitalization, Discharge may exacerbated symptoms, Severe functional impairment Progress Toward Problem(s) and Goals/Treatment Plan: Schizoaffective disorder bipolar type Cocaine use disorder severe CBT Psychoeducation Supportive therapy and group therapy Increase Depakote to 500 mg p.o. twice daily Increase Risperdal to 2 mg p.o. twice daily Klonopin 1 mg p.o. twice daily Hydroxyzine 25 mg p.o. every 6 hours as needed Trazodone 50 mg p.o. nightly Estimated Date of D/C: 11/12/18
[2018-11-10 06:26] VITALS: BP 113/72; PULSE 77; TEMP 98.7
--- NOTE | 2018-11-10 10:18 | PCM.PYCHDC ---
Mental Status Examination - Mental Status Examination Orientation: Person, Place, Situation, Time Memory: Intact Mood: Neutral Affect: Constricted Speech: Soft Attention: WNL Concentration: WNL Association: WNL Fund of Knowledge: WNL Formal Thought Process: No Impairment Description of patient's judgement and insight: good, fair Psychotic Thoughts and Behaviors: denies any AVH Suicidal Ideation: No Current Homicidal Ideation?: No Discharge Summary - Discharge Note Reason for Hospitalization: This is a 38 y/o homeless female who came to the [facility] for auditory hallucinations and suicidal/ homicidal ideation. Workforce Development Assistant is familiar with this patient. Patient has history of multiple inpatient psychiatric hospitalizations. She was just discharged from [facility] a few weeks ago. As per the patient she stopped taking her medications and relapsed on cocaine. As the patient, she started hearing voices telling her to harm herself and harm others. She told her mom and her mom called the police. She remained a very poor historian. She was superficially cooperative but guarded about details. Patient appears very disorganized and internally preoccupied. She reports of hearing voices command type to hurt herself and her others. She appeared very delusional and paranoid. She remained irritable and agitated. She continued to yell and curse at the staff, and remained nondirectable. She also reported paranoia that people are after her. She appears very disheveled and unkempt. As per the family she has been talking to her relatives. She reports of smoking cocaine but denies any drinking or any other drugs. Consultations:: List each consultation separately and include: 1. Reason for request. 2. Findings. 3. Follow-up Summary of Hospital Course include:: 1. Description of specific treatment plan utilized for patients during their course of treatmen. 2. Summarize the time- course for resolution of acute symptoms and/or regressed behaviors. 3. Describe issues identified and worked on during hospitalization. 4. Describe medication utilized. 5. Describe medical problems identified and treated. 6. Reassessment of suicide risk - Final Diagnosis (DSM 5) Condition upon Discharge: STABLE DSM 5: Schizoaffective disorder bipolar type Cocaine use disorder severe Disposition: HOME/ ROUTINE Prescriptions/Medication Reconciliation: Benztropine [Cogentin] 1 mg PO BID #60 tab Divalproex [Depakote ER] 500 mg PO BID #60 ter risperiDONE [RisperDAL Tab] 2 mg PO BID #60 tab - Smoking Cessation Smoking Cessation Medication prescribed: No - Antipsychotic Medications Pt discharged on 2 or more routine antipsychotic medications: No
== END 2018-11-10 10:30 | disposition home or self-care (01) | DRG 430 ==
LOC: C.ER 11:43 → C.9E 14:08 → C.5E 16:34
PROVIDERS: ADMIT Psychiatry & Neurology Psychiatry; ATTEND Psychiatry & Neurology Psychiatry
PROC: GZ56ZZZ Individual Psychotherapy, Supportive (ICD-10-PCS; principal; 2018-11-05)
DX: F25.0 Schizoaffective disorder, bipolar type (principal); F14.10 Cocaine abuse, uncomplicated; I10 Essential (primary) hypertension; R45.850 Homicidal ideations; Z59.0 Homelessness

== ENCOUNTER 2019-02-08 22:35 | Inpatient (IN) | payer MEDICAID ==
[2019-02-08 22:53] VITALS: BMI 32.7
--- NOTE | 2019-02-08 23:04 | C.PDOC ---
History Of Present Illness pt presents with severe agitation . She called the ambulance for suicidal and homicidal ideation. Pt is very aggressive, belligerent threatening in the ed Time Seen by Provider: 02/08/19 22:52 History Per: Patient History/Exam Limitations: no limitations Onset/Duration Of Symptoms: Days Current Symptoms Are (Timing): Worse Suicide/Self Injury Attempted (Context): Other Modifying Factor(s): None Severity: Severe Pain Scale Rating Of: 8 Associated Symptoms: Agitation, Depression, Paranoia Involuntary Hold By: None Recent travel outside of the [place]: No Additional History Per: Patient, Prior Records Past Medical History Reviewed: Historical Data, Nursing Documentation, Vital Signs - Medical History PMH: Bipolar Disorder, HTN, Schizophrenia Denies: Diabetes, Hepatitis, HIV, Seizures, Sexually Transmitted Disease - [facility] Procedures GROUP PSYCHOTHERAPY (09/25/18) INDIVIDUAL PSYCHOTHERAPY, COGNITIVE-BEHAVIORAL (09/25/18) INDIVIDUAL PSYCHOTHERAPY, SUPPORTIVE (11/05/18) Family History: States: No Known Family Hx - Social History Hx Alcohol Use: No Hx Substance Use: Yes - Immunization History Hx Tetanus Toxoid Vaccination: No Hx Influenza Vaccination: No Hx Pneumococcal Vaccination: No Review Of Systems Review Of Systems: ROS cannot be obtained secondary to pt's inabilty to answer questions. Physical Exam - Physical Exam Appears: In Acute Distress Skin: Warm, Dry Head: Normacephalic Eye(s): bilateral: Normal Inspection Oral Mucosa: Moist Chest: Symmetrical Cardiovascular: Rhythm Regular Respiratory: Rales, No Rhonchi, No Wheezing Gastrointestinal/Abdominal: Soft, No Tenderness Back: No CVA Tenderness Extremity: Normal ROM Neurological/Psych: Oriented x3 Gait: Steady ED Course And Treatment - Laboratory Results Result Diagrams: 02/09/19 01:15 02/09/19 01:15 Disposition Discussed With : Eileen Cruz Comment: accepted the pt on his service and took over the care at 5 AM Doctor Will See Patient In The: Hospital Counseled Patient/Family Regarding: Studies Performed, Diagnosis - Disposition Disposition: HOSPITALIZED Disposition Time: 23:00 Condition: FAIR - POA Present On Arrival: None - Clinical Impression Clinical Impression: Schizoaffective disorder Decision To Admit - Pt Status Changed To: Hospital Disposition Of: Inpatient - Admit Certification Admit to Inpatient:: After my assessment, the patient will require hospitalization for at least two midnights. This is because of the severity of symptoms shown, intensity of services needed, and/or the medical risk in this patient being treated as an outpatient. - InPatient: Physician Admission Certification: I certify that this patient requires 2 or more midnights of care for the following reason:: After my assessment, the patient will require hospitalization for at least two midnights. This is because of the severity of symptoms shown, intensity of services needed, and/or the medical risk in this patient being treated as an outpatient. - . Bed Request Type: Psychiatry Admitting Physician: Eileen Cruz Patient Diagnosis: Schizoaffective disorder
[2019-02-09 01:32] LABS: BASO # 0.1 K/uL (0.0-0.2); BASO % 0.8 % (0.0-2.0); HEMOGLOBIN 12.5 g/dL (11.0-16.0); LYMPH # 2.3 K/uL (1.0-4.3); LYMPH % 36.4 % (20.0-40.0); MEAN CELL VOLUME 93.3 fL (81.0-99.0); MEAN CORPUSCULAR HEMOGLOBIN 30.6 pg (27.0-31.0); MEAN CORPUSCULAR HGB CONC 32.8 g/dL (33.0-37.0); MEAN PLATELET VOLUME 7.6 fL (7.2-11.7); MONO # 0.3 K/uL (0.0-0.8); MONO % 5.4 % (0.0-10.0); NEUT # 3.7 K/uL (1.8-7.0); NEUT % 57.4 % (50.0-75.0); NRBC % 0.1 % (0.0-2.0); RBC 4.1 Mil/uL (3.80-5.20); RED CELL DISTRIBUTION WIDTH 14.8 % (11.5-14.5); WHITE BLOOD COUNT 6.4 K/uL (4.8-10.8)
[2019-02-09 01:53] LABS: ALB/GLOB RATIO 1.4 (1.0-2.1); ALBUMIN 4.1 g/dL (3.5-5.0); ALT/SGPT 10 U/L (9-52); AST/SGOT 20 U/L (14-36); BLOOD UREA NITROGEN 15 mg/dL (7-17); CALCIUM 9.1 mg/dl (8.6-10.4); GFR NON-AFRICAN AMERICAN > 60
[2019-02-09 02:21] LABS: BARBITURATES, UR NEGATIVE (NEGATIVE); BENZODIAZEPINES, UR NEGATIVE (NEGATIVE); OPIATES, UR NEGATIVE (NEGATIVE); PHENCYCLIDINE, UR NEGATIVE (NEGATIVE)
[2019-02-09 02:27] LABS: URINE BILIRUBIN NEGATIVE (NEGATIVE); URINE BLOOD NEGATIVE (NEGATIVE); URINE CLARITY Clear (Clear); URINE COLOR Straw (YELLOW); URINE GLUCOSE (UA) NORMAL (Normal); URINE LEUKOCYTE ESTERASE NEG Leu/uL (Negative); URINE PROTEIN NEGATIVE (NEGATIVE); URINE UROBILINOGEN NORMAL mg/dL (0.2-1.0)
[2019-02-09 05:24] VITALS: O2SAT 96
--- NOTE | 2019-02-09 07:02 | PCM.BM ---
<Ana Tovar - Last Filed: 02/09/19 07:00> Treatment Plan Problems - Problems identified on initial assessmt Deffective coping Date Initiated: 02/09/19 Time Initiated: 05:45 Date resolved: 02/09/19 Assessment reference: NA Status: Active thought Alteratin Date Initiated: 02/09/19 Time Initiated: 05:45 Assessment reference: NA Status: Active Treatment assets and liabiliti Patient Assests: cooperative, self-reliant, ADL independent, physically healthy, negotiates basic needs, cognitively intact Patient Liabilities: financial problems, poor support system, substance abuse - Milieu Protocol Maintain good personal hygiene: daily Encourage regular showers, daily Remind patient to perform daily oral care, daily Assist patient to perform ADL's Conduct patient checks and document Observation sheet: Q15 minutes Maintain personal safety: every shift Educate patient to report safety concerns to staff, every shift Monitor environment for contraband/sharps Medication safety: Monitor for expected outcome, potential side effects: every shift, Assess barriers to learning: every shift, Assess readiness for medication education: every shift <Eileen Cruz - Last Filed: 02/10/19 11:29> - Diagnosis (1) Schizoaffective disorder Status: Acute Interventions: 02/10/19 11:29 * Assess/adjust medications daily and /or as needed * See patient on an individual basis 7x/week to assess status of hallucinations * Discuss risks, benefits, side effects and alternatives of medications * <Jossie Saini - Last Filed: 02/10/19 11:38> Family Contact Family involvement: Famliy/SO not involved - Goals for Treatment Patient goals for treatment: "I want to go back to my psychiatrist." Discharge/Continuing Care - Education Needs Education Needs: Patient Medication, Patient Coping Skills - Discharge Discharge Criteria: Tolerates medication w/o severe side effects, Reduction of target symptoms Discharge to:: Home, With Family - Treatment Team Participation Discussed with Family/SO: No Was Patient/Family/SO present at Treatment Team Meeting: Yes
--- NOTE | 2019-02-09 10:40 | PCM.PSYCH ---
Initial Psychiatric Evaluation - Initial Psychiatric Evaluation Type of Admission: Voluntary Legal Status: Capacity Chief Complaint (in patient's own words): I started hearing voices History of Present Illness and Precipitating Events: This is a 38 year old female who is single, living with her mother, and unemployed. She came to [facility] because she ran out of her medication, and she developed suicidal ideation and homicidal ideation. Patient has a history of multiple psychiatric hospitalizations. She was last at [facility] in October 2018 and did not follow up with a psychiatrist after discharge. She remained a poor historian. She was visibly agitated. Patient appears disorganized and internally preoccupied. She appears very disheveled and unkempt. She reports smoking cocaine but denies any drinking other other drug use. She has a history of cocaine abuse and medication noncompliance. Patient has a history of hearing voices telling her to harm herself and others, but denies auditory or visual hallucinations or paranoia currently. PsychHx: schizoaffective disorder MedHx: denies Allergies: unobtainable Meds: Risperdal, Depakote, Benztropine SurgHx: denies Past Psychiatric History - Past Psychiatric History Previous Treatment History: Inpatient Pertinent Medical Hx (Current Medical&Sleep Prob, Allergies): Allergies Allergy/AdvReac Type Severity Reaction Status Date / Time unobtainable Allergy Uncoded 02/08/19 23:28 Divalproex [Depakote ER] 500 mg PO HS 09/25/18 DiphenhydrAMINE [Benadryl] 50 mg PO HS 11/05/18 risperiDONE [RisperDAL] 3 mg PO HS 11/05/18 traZODone [trazODONE HYDROCHLORIDE] 50 mg PO HS 11/05/18 Benztropine [Cogentin] 1 mg PO BID #60 tab 11/10/18 Divalproex [Depakote ER] 500 mg PO BID #60 ter 11/10/18 risperiDONE [RisperDAL Tab] 2 mg PO BID #60 tab 11/10/18 Review of Systems - Review of Systems All systems: reviewed and no additional remarkable complaints except - Psychiatric Psychiatric: Anxiety, Irritability Mental Status Examination - Personal Presentation Personal Presentation: Looks stated age - Affect Affect: Constricted - Motor Activity Motor Activity: Psychomotor Agitation - Reliability in Providing Information Reliability in Providing Information: Poor, due to alteration in thoughts, Poor, due to altered mood - Speech Speech: Disorganized - Mood Mood: Depressed, Anxious - Formal Thought Process Formal Thought Process: Hallucinations, Delusions, Paranoia, Loosening of associations - Hallucinations/Delusions Hallucinations: Visual, Auditory - Obsessions/Compulsions Obsessions: No Compulsions: No - Cognitive Functions Orientation: Person, Place, Situation Sensorium: Alert Attention/Concentration: Attentive Abstract Thinking: [place] Estimate of Intelligence: Below average Judgement: Imparied, as evidence by: Poor judgement, Imparied, as evidence by: Lack of insight into illness - Risk Risk: Diminished functioning - Limitations Limitations: Living alone DSM 5 DX - DSM 5 DSM 5 Diagnosis: Schizoaffective disorder bipolar diagnosis Cocaine use disorder severe - Recommended/Plan of Treatment Treatment Recommendations and Plan of Treatment: Schizoaffective disorder bipolar diagnosis Cocaine use disorder severe CBT Psychoeducation Supportive therapy and group therapy Trazodone for insomnia Depakote for mood Klonopin for anxiety Risperdal for psychosis Cogentin for EPS
[2019-02-09] MEDS: Divalproex 500 mg ER Tab PO SCH ×2 (11:41→17:25)
[2019-02-10] MEDS: Divalproex 500 mg ER Tab PO SCH ×2 (09:47→17:56)
--- NOTE | 2019-02-10 11:29 | PCM.PYCHPN ---
Psychiatric Progress Note - Psychiatric Progress Note Patient seen today, length of contact: 15 min Patient Chief Complaint: I started hearing voices Problems Identified/Issues Discussed: Patient was seen and evaluated, chart reviewed and discussed the staff. Patient remained increasingly disorganized and internally preoccupied. She still appears paranoid, delusional and bizarre. She remained isolative and withdrawn. However she is taking medication but denies any side effects. She needs to stay longer for the stabilization of the symptoms. Medication Change: Yes Medical Record Reviewed: Yes Mental Status Examination - Cognitive Function Orientation: Person, Place, Situation Memory: Intact Attention: WNL Concentration: Poor Association: Loose Fund of Knowledge: Poor - Mood Mood: Depressed, Anxious - Affect Affect: Constricted - Speech Speech: Appropriate - Formal Thought Process Formal Thought Process: Hallucinations, Delusions, Paranoia, Loosening of associations - Suicidal Ideation Suicidal Ideation: No - Homicidal Ideation Homicidal Ideation: No Goal/Treatment Plan - Goal/Treatment Plan Need for Continued Stay: Remain at risks for inpatient hospitalization Progress Toward Problem(s) and Goals/Treatment Plan: Schizoaffective disorder bipolar diagnosis Cocaine use disorder severe CBT Psychoeducation Supportive therapy and group therapy Trazodone for insomnia Depakote for mood Klonopin for anxiety Risperdal for psychosis Cogentin for EPS
[2019-02-11] MEDS: Divalproex 500 mg ER Tab PO SCH ×2 (09:35→17:16)
[2019-02-12] MEDS: Divalproex 500 mg ER Tab PO SCH ×2 (09:24→17:07)
[2019-02-12] MEDS ORDERED: Pneumococcal 23-Valent Vaccine IM ONE (10:00)
[2019-02-12] MEDS ORDERED: Influenza Virus Vaccine 45 mcg/0.5 ml Syr (36 months - 7 yrs) IM ONE (10:00)
[2019-02-13] MEDS: Divalproex 500 mg ER Tab PO SCH ×2 (09:30→17:08)
[2019-02-14 08:11] VITALS: BP 113/75; PULSE 62; RESP 18; TEMP 97.8
[2019-02-14] MEDS: Divalproex 500 mg ER Tab PO SCH (09:06)
--- NOTE | 2019-02-14 12:04 | PCM.PYCHDC ---
Mental Status Examination - Mental Status Examination Orientation: Person, Place, Situation, Time Memory: Intact Mood: Neutral Affect: Constricted Speech: Soft Attention: WNL Concentration: WNL Association: WNL Fund of Knowledge: WNL Formal Thought Process: No Impairment Description of patient's judgement and insight: good, fair Psychotic Thoughts and Behaviors: denies any AVH Suicidal Ideation: No Current Homicidal Ideation?: No Discharge Summary - Discharge Note Reason for Hospitalization: This is a 38 year old female who is single, living with her mother, and unemployed. She came to [facility] because she ran out of her medication, and she developed suicidal ideation and homicidal ideation. Patient has a history of multiple psychiatric hospitalizations. She was last at [facility] in October 2018 and did not follow up with a psychiatrist after discharge. She remained a poor historian. She was visibly agitated. Patient appears disorganized and internally preoccupied. She appears very disheveled and unkempt. She reports smoking cocaine but denies any drinking other other drug use. She has a history of cocaine abuse and medication noncompliance. Patient has a history of hearing voices telling her to harm herself and others, but denies auditory or visual hallucinations or paranoia currently. Consultations:: List each consultation separately and include: 1. Reason for request. 2. Findings. 3. Follow-up Summary of Hospital Course include:: 1. Description of specific treatment plan utilized for patients during their course of treatmen. 2. Summarize the time- course for resolution of acute symptoms and/or regressed behaviors. 3. Describe issues identified and worked on during hospitalization. 4. Describe medication utilized. 5. Describe medical problems identified and treated. 6. Reassessment of suicide risk Summary of Hospital Course: This is a 38 year old female who is single, living with her mother, and unemployed. She came to [facility] because she ran out of her medication, and she developed suicidal ideation and homicidal ideation. Patient has a history of multiple psychiatric hospitalizations. She was last at [facility] in October 2018 and did not follow up with a psychiatrist after discharge. She remained a poor historian. She was visibly agitated. Patient appears disorganized and internally preoccupied. She appears very disheveled and unkempt. She reports smoking cocaine but denies any drinking other other drug use. She has a history of cocaine abuse and medication noncompliance. Patient has a history of hearing voices telling her to harm herself and others, but denies auditory or visual hallucinations or paranoia currently. PsychHx: schizoaffective disorder MedHx: denies Allergies: unobtainable Meds: Risperdal, Depakote, Benztropine SurgHx: denies - Diagnosis (1) Schizoaffective disorder Current Visit: Yes Status: Acute - Final Diagnosis (DSM 5) Condition upon Discharge: FAIR DSM 5: Schizoaffective disorder bipolar diagnosis Cocaine use disorder severe Disposition: HOME/ ROUTINE Follow-up Treatment Plan: Schizoaffective disorder bipolar diagnosis Cocaine use disorder severe CBT Psychoeducation Supportive therapy and group therapy Trazodone for insomnia Depakote for mood Klonopin for anxiety Risperdal for psychosis Cogentin for EPS Prescriptions/Medication Reconciliation: Benztropine [Cogentin] 1 mg PO BID #60 tab Divalproex [Depakote ER] 500 mg PO BID #60 ter risperiDONE [RisperDAL Tab] 2 mg PO BID #60 tab traZODone [Desyrel] 50 mg PO HS #30 tab
[2019-02-15] MEDS ORDERED: Influenza Vaccine 60 mcg/0.5 mL SYR (4YR UP) IM ONE (10:00)
[2019-02-15] MEDS ORDERED: Pneumococcal 23-Valent Vaccine IM ONE (10:00)
== END 2019-02-14 13:03 | disposition home or self-care (01) | DRG 430 ==
LOC: C.ER 22:35 → C.5E 02-09 05:00
PROVIDERS: ADMIT Psychiatry & Neurology Psychiatry; ATTEND Psychiatry & Neurology Psychiatry
PROC: GZHZZZZ Group Psychotherapy (ICD-10-PCS; principal; 2019-02-09)
PROC: GZ56ZZZ Individual Psychotherapy, Supportive (ICD-10-PCS; 2019-02-09)
DX: F25.0 Schizoaffective disorder, bipolar type (principal); F14.10 Cocaine abuse, uncomplicated; R45.851 Suicidal ideations; Z91.14 Patient's other noncompliance with medication regimen; I10 Essential (primary) hypertension; G47.00 Insomnia, unspecified; F41.9 Anxiety disorder, unspecified

== ENCOUNTER 2019-04-13 05:11 | Inpatient (IN) | payer MEDICAID ==
[2019-04-13 05:12] VITALS: BMI 32.7
[2019-04-13 05:24] VITALS: O2SAT 98
[2019-04-13 05:59] LABS: BASO # 0.1 K/uL (0.0-0.2); BASO % 0.7 % (0.0-2.0); EOS # 0.1 K/uL (0.0-0.7); EOS % 1.5 % (0.0-4.0); HEMOGLOBIN 13.6 g/dL (11.0-16.0); LYMPH # 4.1 K/uL (1.0-4.3); MEAN CELL VOLUME 93.8 fL (81.0-99.0); MEAN CORPUSCULAR HEMOGLOBIN 32.6 pg (27.0-31.0); MEAN CORPUSCULAR HGB CONC 34.7 g/dL (33.0-37.0); MEAN PLATELET VOLUME 7.4 fL (7.2-11.7); MONO # 0.5 K/uL (0.0-0.8); MONO % 6.6 % (0.0-10.0); NEUT # 2.7 K/uL (1.8-7.0); NEUT % 36.2 % (50.0-75.0); NRBC % 0.1 % (0.0-2.0); RBC 4.16 Mil/uL (3.80-5.20); RED CELL DISTRIBUTION WIDTH 15.1 % (11.5-14.5); WHITE BLOOD COUNT 7.4 K/uL (4.8-10.8)
[2019-04-13 06:17] LABS: ALB/GLOB RATIO 1.4 (1.0-2.1); ALT/SGPT 28 U/L (9-52); AST/SGOT 22 U/L (14-36); BLOOD UREA NITROGEN 23 mg/dL (7-17); CALCIUM 8.8 mg/dl (8.6-10.4); GFR NON-AFRICAN AMERICAN > 60
--- NOTE | 2019-04-13 06:24 | C.PDOC ---
History Of Present Illness 38 year old female with PMHx of schizophrenia is brought to the ED by EMS for evaluations. Patient states she [place] [facility] [place]. Patient reports she usually takes Depakote and thinks Zyprexa not worki ng for her. EMS was called by patient's mother because patient was pacing back and forth manic and speaking to dinosaurs. Patient denies SI, HI, other medical complaints at this time. Time Seen by Provider: 04/13/19 05:14 Chief Complaint (Nursing): Psychiatric Evaluation History Per: Patient, EMS History/Exam Limitations: no limitations Onset/Duration Of Symptoms: Hrs Current Symptoms Are (Timing): Still Present Suicide/Self Injury Attempted (Context): None Modifying Factor(s): None Associated Symptoms: Paranoia. denies: Depression, Suicidal Thoughts, Suicidal Plan Recent travel outside of the [place]: No Additional History Per: Patient Past Medical History Reviewed: Historical Data, Nursing Documentation, Vital Signs Vital Signs: Last Vital Signs Temp 97.8 F 04/13/19 05:18 Pulse 71 04/13/19 05:18 Resp 14 04/13/19 05:18 BP 104/63 04/13/19 05:18 Pulse Ox 98 04/13/19 05:18 Primary Care Provider: Kraig Patel - Medical History PMH: Bipolar Disorder, Depression, HTN, Schizophrenia Denies: Diabetes, Hepatitis, HIV, Chronic Kidney Disease, Seizures, Sexually Transmitted Disease Surgical History: No Surg Hx - [facility] Procedures GROUP PSYCHOTHERAPY (02/09/19) INDIVIDUAL PSYCHOTHERAPY, COGNITIVE-BEHAVIORAL (09/25/18) INDIVIDUAL PSYCHOTHERAPY, SUPPORTIVE (02/09/19) Family History: States: Unknown Family Hx - Social History Hx Alcohol Use: No Hx Substance Use: No - Immunization History Hx Tetanus Toxoid Vaccination: No Hx Influenza Vaccination: No Hx Pneumococcal Vaccination: No Review Of Systems Constitutional: Negative for: Fever, Chills, Weakness ENT: Negative for: Mouth Swelling Gastrointestinal: Negative for: Vomiting, Diarrhea Musculoskeletal: Negative for: Back Pain Skin: Negative for: Rash Neurological: Negative for: Headache, Dizziness Psych: Positive for: Psychosis. Negative for: Depression, Suicidal ideation Physical Exam - Physical Exam Appears: Well, Non-toxic, No Acute Distress Skin: Normal Color, Warm, Dry Head: Atraumatic, Normacephalic Eye(s): bilateral: Normal Inspection, PERRL, EOMI Neck: Normal ROM, Supple Chest: Symmetrical Respiratory: No Accessory Muscle Use, Other (normal inspiratory effort) Extremity: Bilateral: Atraumatic, Normal ROM Neurological/Psych: Oriented x3, No Normal Speech (pressured speech, appropriate response to questions) ED Course And Treatment - Laboratory Results Result Diagrams: 04/13/19 05:45 04/13/19 05:45 Lab Results: Total Bilirubin 0.3 mg/dL (0.2-1.3) 04/13/19 05:45 AST 22 U/L (14-36) 04/13/19 05:45 ALT 28 U/L (9-52) 04/13/19 05:45 Alkaline Phosphatase 45 U/L (38-126) 04/13/19 05:45 Total Protein 6.8 g/dL (6.3-8.3) 04/13/19 05:45 Albumin 4.0 g/dL (3.5-5.0) 04/13/19 05:45 Globulin 2.8 gm/dL (2.2-3.9) 04/13/19 05:45 Albumin/Globulin Ratio 1.4 (1.0-2.1) 04/13/19 05:45 O2 Sat by Pulse Oximetry: 98 (ON RA) Pulse Ox Interpretation: Normal Medical Decision Making Medical Decision Making: Plan: * Labs * UA * Crisis patient awaiting crisis eval. she will be endorsed to the day team. Disposition - Disposition Disposition Time: 06:40 Condition: STABLE Forms: [facility] (Frisian) - Clinical Impression Clinical Impression: Schizophrenia - PA / SOUND PRINTER / Resident Statement MD/DO has reviewed & agrees with the documentation as recorded. - Scribe Statement The provider has reviewed the documentation as recorded by the Scribe Ant Yu All medical record entries made by the Scribe were at my direction and personally dictated by me. I have reviewed the chart and agree that the record accurately reflects my personal performance of the history, physical exam, medical decision making, and the department course for this patient. I have also personally directed, reviewed, and agree with the discharge instructions and disposition. Physician Patient Turnover Patient Signed Over To: Marya Murray (patient awaiting psych eval)
[2019-04-13 06:38] LABS: SQUAMOUS EPITHIAL 9 /hpf (0-5); URINE BACTERIA RARE (<OCC); URINE BILIRUBIN NEGATIVE (NEGATIVE); URINE BLOOD NEGATIVE (NEGATIVE); URINE CLARITY Hazy (Clear); URINE COLOR Yellow (YELLOW); URINE GLUCOSE (UA) NORMAL (Normal); URINE LEUKOCYTE ESTERASE NEG Leu/uL (Negative); URINE PROTEIN NEGATIVE (NEGATIVE)
[2019-04-13 06:48] LABS: BARBITURATES, UR NEGATIVE (NEGATIVE); BENZODIAZEPINES, UR NEGATIVE (NEGATIVE); OPIATES, UR NEGATIVE (NEGATIVE); PHENCYCLIDINE, UR NEGATIVE (NEGATIVE)
--- NOTE | 2019-04-13 11:36 | PCM.BM ---
<Eugenia Shrestha - Last Filed: 04/13/19 11:26> Treatment Plan Problems - Problems identified on initial assessmt altered thoughts Date Initiated: 04/13/19 Time Initiated: 11:41 Assessment reference: NA Status: Active auditory hallucinations Date Initiated: 04/13/19 Time Initiated: 11:42 Assessment reference: NA Status: Active Treatment assets and liabiliti Patient Assests: cooperative, self-reliant, ADL independent, physically healthy, negotiates basic needs, cognitively intact Patient Liabilities: financial problems, poor support system, relationship conflicts, substance abuse, medical problems - Milieu Protocol Maintain good personal hygiene: daily Encourage regular showers, daily Remind patient to perform daily oral care, daily Assist patient to perform ADL's Conduct patient checks and document Observation sheet: Q15 minutes Maintain personal safety: every shift Educate patient to report safety concerns to staff, every shift Monitor environment for contraband/sharps Medication safety: Monitor for expected outcome, potential side effects: every shift, Assess barriers to learning: every shift, Assess readiness for medication education: every shift <Eileen Cruz - Last Filed: 04/14/19 10:35> - Diagnosis (1) Schizoaffective disorder Status: Acute Interventions: 04/14/19 10:35 * Assess/adjust medications daily and /or as needed * See patient on an individual basis 7x/week to assess status of hallucinations * Discuss risks, benefits, side effects and alternatives of medications * <Jossie Saini - Last Filed: 04/16/19 09:49> Family Contact Family involvement: Family/SO is involved Family contact: Patient declines to allow family contact at present - Goals for Treatment Patient goals for treatment: "I don't know." Discharge/Continuing Care - Education Needs Education Needs: Patient Medication, Patient Coping Skills - Discharge Discharge Criteria: Tolerates medication w/o severe side effects, Reduction of target symptoms Discharge to:: Home, With Family - Treatment Team Participation Discussed with Family/SO: No Was Patient/Family/SO present at Treatment Team Meeting: Yes
--- NOTE | 2019-04-13 12:10 | PCM.PSYCH ---
Initial Psychiatric Evaluation - Initial Psychiatric Evaluation Type of Admission: Voluntary Legal Status: Capacity Chief Complaint (in patient's own words): I do not know why I ended up here..' History of Present Illness and Precipitating Events: Patient is a 38 years old -[place] female, who was brought in by EMS to the [facility] ED because mother called because of disorganized behavior. Patient reports history of schizoaffective disorder. She has history of multiple inpatient psychiatric hospitalizations. She was recently discharged from [facility] last month. Patient remained a poor historian. She was superficially cooperative but guarded about the details. As per the ED report, mother called the police as patient was disorganized and pacing back and forth inside and outside the house all night and was talking about the dinosaurs. She has been running in traffic and has been taking her clothes off. Patient's mother stated that she thinks Patient needs assisted care as she might hurt herself or someone else. Patient's mother explained that she's blind and she can not handle her daughter. Patient remained disorganized and internally preoccupied throughout the interview. She continued to have loose associations. When asked who brought her to the hospital, she replied that her mother called the police but she does not know why. She appeared to be internally preoccupied and he was responding to internal stimuli. She reports auditory hallucinations and reports of paranoia. She reports irritability, and agitation. She remained bizarre and psychotic throughout the interview. She denies any substance abuse. However urinary toxicology came positive with cocaine. PMH: None reported Current Medications: Active Medications Generic Name Dose Route Start Last Admin Trade Name Freq PRN Reason Stop Dose Admin Pneumococcal Polyvalent Vaccine 0.5 ml 04/16/19 10:00 Pneumovax 23 Vaccine IM 04/16/19 10:01 .ONCE ONE Past Psychiatric History - Past Psychiatric History Previous Treatment History: Inpatient Pertinent Medical Hx (Current Medical&Sleep Prob, Allergies): Allergies Allergy/AdvReac Type Severity Reaction Status Date / Time No Known Allergies Allergy Verified 04/13/19 05:24 DiphenhydrAMINE [Benadryl] 50 mg PO HS 11/05/18 Benztropine [Cogentin] 1 mg PO BID #60 tab 11/10/18 Divalproex [Depakote ER] 500 mg PO BID #60 ter 11/10/18 risperiDONE [RisperDAL Tab] 2 mg PO BID #60 tab 02/14/19 traZODone [Desyrel] 50 mg PO HS #30 tab 02/14/19 Review of Systems - Review of Systems All systems: reviewed and no additional remarkable complaints except - Psychiatric Psychiatric: Anxiety, Auditory Hallucinations, Irritability, Mood Swings Mental Status Examination - Personal Presentation Personal Presentation: Looks stated age - Affect Affect: Broad - Motor Activity Motor Activity: Psychomotor Agitation - Reliability in Providing Information Reliability in Providing Information: Poor, due to alteration in thoughts - Speech Speech: Disorganized - Mood Mood: Anxious - Formal Thought Process Formal Thought Process: Hallucinations, Delusions, Paranoia, Loosening of associations - Hallucinations/Delusions Hallucinations: Auditory Delusions: Persecution - Obsessions/Compulsions Obsessions: No Compulsions: No - Cognitive Functions Orientation: Person, Place, Situation, Time Sensorium: Alert Attention/Concentration: Attentive Abstract Thinking: [place] Estimate of Intelligence: Below average Judgement: Imparied, as evidence by: Poor judgement, Imparied, as evidence by: Lack of insight into illness - Risk Risk: Diminished functioning - Strength & Assets Inventory Strength & Assets Inventory: Family support DSM 5 DX - DSM 5 DSM 5 Diagnosis: Schizoaffective disorder bipolar type Cocaine use disorder severe - Recommended/Plan of Treatment Treatment Recommendations and Plan of Treatment: Schizoaffective disorder bipolar type Cocaine use disorder severe CBT Supportive therapy and group therapy Hydroxyzine for anxiety Klonopin for anxiety Olanzapine for psychosis Depakote for mood stabilization
[2019-04-13] MEDS: Divalproex 250 mg DR Tab PO SCH (17:55)
[2019-04-14] MEDS: Divalproex 250 mg DR Tab PO SCH ×2 (09:14→18:13)
--- NOTE | 2019-04-14 10:35 | PCM.PYCHPN ---
Psychiatric Progress Note - Psychiatric Progress Note Patient seen today, length of contact: 15 min Patient Chief Complaint: I do not know why I ended up here..' Problems Identified/Issues Discussed: Patient seen and evaluated, chart reviewed and discussed with the nurse. Patient remained disorganized and internally preoccupied. Patient remained isolated, confined and withdrawn. She still reports of hearing voices. Patient still appears paranoid and delusional. She is taking medications and denies any side effects Symptoms are improving but she needs more time for stabilization. Supportive therapy and psychoeducation were given. Medication Change: Yes Medical Record Reviewed: Yes Mental Status Examination - Cognitive Function Orientation: Person, Place, Situation, Time Memory: Intact Attention: Poor Concentration: Poor Association: Loose Fund of Knowledge: Poor - Mood Mood: Anxious - Affect Affect: Broad - Speech Speech: Soft - Formal Thought Process Formal Thought Process: Hallucinations, Delusions, Paranoia, Loosening of associations, Flight of ideas - Suicidal Ideation Suicidal Ideation: No - Homicidal Ideation Homicidal Ideation: No Goal/Treatment Plan - Goal/Treatment Plan Need for Continued Stay: Remain at risks for inpatient hospitalization Progress Toward Problem(s) and Goals/Treatment Plan: Schizoaffective disorder bipolar type Cocaine use disorder severe CBT Supportive therapy and group therapy Hydroxyzine for anxiety Klonopin for anxiety Olanzapine for psychosis Depakote for mood stabilization
[2019-04-15] MEDS: Divalproex 250 mg DR Tab PO SCH ×2 (09:49→18:15)
[2019-04-16 06:47] VITALS: RESP 18
[2019-04-16] MEDS: Divalproex 250 mg DR Tab PO SCH (09:47)
[2019-04-16] MEDS ORDERED: Pneumococcal 23-Valent Vaccine IM ONE (10:00)
[2019-04-16] MEDS: Divalproex 500 mg DR Tab PO SCH (17:23)
[2019-04-17 06:24] VITALS: BP 115/70; PULSE 65; TEMP 98.3
[2019-04-17] MEDS: Divalproex 500 mg DR Tab PO SCH (09:19)
== END 2019-04-17 13:53 | disposition home or self-care (01) | DRG 430 ==
LOC: C.ER 05:11 → C.9E 09:22 → C.5E 10:41
PROVIDERS: ADMIT Psychiatry & Neurology Psychiatry; ATTEND Psychiatry & Neurology Psychiatry
DX: F25.0 Schizoaffective disorder, bipolar type (principal); F14.20 Cocaine dependence, uncomplicated; F41.9 Anxiety disorder, unspecified; I10 Essential (primary) hypertension